=== PATIENT | female | born 1945 | race Caucasian/White ===

== ENCOUNTER 2018-01-13 10:59 | Emergency (ER) | payer MEDICARE, OTHER, SELFPAY ==
[2018-01-13 11:06] VITALS: BP 155/83; PULSE 68; RESP 16; TEMP 36.9; O2SAT 97; BMI 29.2
--- NOTE | 2018-01-13 11:08 | PC.NURSE ---
toke of marijuana use.
--- NOTE | 2018-01-13 11:17 | PC.NURSE ---
Pt states tetanus shot is up to date. Denies pain. States she has diabetic neuropathy and her sensation is normal for her. Toe nail was cut and is still partially intact. I removed bandage bleeding is stopped. Placed gauze to protect.
--- NOTE | 2018-01-13 11:28 | ED_ITS ---
HPI - Wound/Laceration General Chief Complaint: Wound/Laceration Stated Complaint: RT FOOT SLICED OPEN Time Seen by Provider: 01/13/18 11:12 Source: patient Mode of arrival: ambulatory Limitations: no limitations History of Present Illness HPI narrative: Patient is a 72-year-old female who presents with right toe laceration. She dropped a kitchen knife on her toe just prior to arrival. He has some mild neuropathy due to diabetes as is but denies numbness or tingling that is worse. Onset (ago): minute(s) Related Data Home Medications Medication Instructions Recorded Confirmed amlodipine [Norvasc] 5 mg PO QDAY #0 05/11/16 carbidopa-levodopa 2 tab PO Q DAY #0 05/11/16 fluticasone 1 spray INTRANASAL QDAY #0 05/11/16 loperamide 2 mg PO PRN PRN #0 05/11/16 loratadine [Claritin] 10 mg PO QDAY #0 05/11/16 ondansetron HCl 4 mg PO Q4HP PRN #0 05/11/16 Previous Rx's Medication Instructions Recorded sulfamethoxazole-trimethoprim 1 tab PO BID #14 tab 05/16/16 Allergies Allergy/AdvReac Type Severity Reaction Status Date / Time codeine [CODEINE] Allergy Unknown Unverified 06/20/17 12:59 Review of Systems Review of Systems All systems reviewed & are unremarkable except as noted in HPI and below Constitutional Denies fever(s) and Denies lethargy Eyes Denies blurry vision and Denies change in vision Cardiovascular Denies chest pain, Denies syncope and Denies dyspnea Respiratory Denies cough and Denies dyspnea Gastrointestinal Gastrointestinal: Denies nausea Musculoskeletal Reports as per HPI Integumentary/Breasts Reports as per HPI Neurologic Reports as per HPI and Denies syncope [facility] Medical History Diabetes (Acute) Social History Smoking Status: Former smoker Exam Initial Vital Signs Initial Vital Signs: Vital Signs Temperature 98.5 F 01/13/18 11:06 Pulse Rate 68 01/13/18 11:06 Respiratory Rate 16 01/13/18 11:06 Blood Pressure 155/83 H 01/13/18 11:06 Pulse Oximetry 97 01/13/18 11:06 GENERAL: Well-appearing, well-nourished and in no acute distress. CARDIOVASCULAR: peripheral pulses in tact, cap refill <2 sec RESPIRATORY: No respiratory distress, speaks in full sentences without difficulty EXTREMITIES: Normal range of motion, no clubbing or edema. Neurovascularly intact NEUROLOGICAL: Cranial nerves II through XII grossly intact. Normal gait and speech. SKIN: 2 cm laceration on his right 2nd toe involving part of the nail. Skin General: no rashes or lesions noted, No jaundice and No petechiae Feet w/LR Ind Top: 2 1. Flap-like laceration involving part of the toenail and toe bed Procedures Laceration Repair Laceration 1: Site: lower extremity Side (If applicable): right Size (cm): 2 Description: flap Depth: simple, single layer Local Anesthetic: lidocaine 1% Pre-repair: wound explored, irrigated extensively and deep structures intact Skin layer closed with: nylon Size (cm): 5-0 Number of sutures: 3 Technique: simple, interrupted Technique: other (Nail is partially removed. Remains intact at the cuticle) Nerve Block Nerve Block 1: Time out performed: Yes Local Anesthetic: lidocaine 1% Side: right Nerve Blocks: digital Procedure Successful: Yes Patient Tolerated Procedure: Well Complications: none Course Vital Signs - 8 hr 01/13/18 11:06 01/13/18 12:31 Temperature 98.5 F Pulse Rate 68 61 Respiratory Rate 16 18 Blood Pressure 155/83 H 138/75 Pulse Oximetry 97 98 Discharge Plan Departure Patient Disposition: Home Clinical Impression: Laceration of toe of right foot with damage to nail Discharge Date/Time: 01/13/18 12:32 Interventions: ED Discharge Assessment Last Done: 01/13/18 12:31 Instructions: DI for Laceration Repair -- Complex Activity Restrictions/Additional Instructions: 1. Have your suture removed in 5-7 days, you may go to walk-in clinic, return to the ER or call your primary care physician. 2. No soaking in water including dishes, bathtubs, Lakes, swimming pools etc 3. Signs of infection include, but not limited to, increased redness, increased swelling, increased pain, fever and purulent drainage, if the symptoms should arise, you may need an antibiotic and you should have a reevaluation either by your primary care provider or by the emergency department. Prescriptions: No Action loperamide 2 MG capsule 2 mg PO PRN PRNQty: 0 RF: 0 fluticasone 16 GM spray,suspension 1 spray Intranasal QDAY Qty: 0 RF: 0 loratadine [Claritin] 10 MG tablet 10 mg PO QDAY Qty: 0 RF: 0 carbidopa-levodopa 25 MG/100 MG tablet 2 tab PO Q DAY Qty: 0 RF: 0 amlodipine [Norvasc] 5 MG tablet 5 mg PO QDAY Qty: 0 RF: 0 ondansetron HCl 4 MG tablet 4 mg PO Q4HP PRNQty: 0 RF: 0 sulfamethoxazole-trimethoprim 800 MG/160 MG tablet 1 tab PO BID Qty: 14 RF: 0 Referrals: Akhil Nevarez MD [Primary Care Provider] -
[2018-01-13 12:31] VITALS: BP 138/75; PULSE 61; RESP 18; O2SAT 98
== END 2018-01-13 12:32 | disposition home or self-care (01) ==
PROVIDERS: Emergency Provider Emergency Medicine; PCP Family Medicine
DX: S91.214A Laceration without foreign body of right lesser toe(s) with damage to nail, initial encounter (principal); W26.0XXA Contact with knife, initial encounter
CPT/HCPCS: 12001; 12041; 64450; 99282; 99283

== ENCOUNTER → 2018-06-10 09:39 | Outpatient (CLI) | payer OTHER, SELFPAY | PROVIDERS: PCP Family Medicine; Visit Provider Family Medicine | DX: Z13.820 Encounter for screening for osteoporosis (principal); Z78.0 Asymptomatic menopausal state; E11.9 Type 2 diabetes mellitus without complications; R29.890 Loss of height; Z82.62 Family history of osteoporosis; Z87.891 Personal history of nicotine dependence | CPT/HCPCS: 77080 ==

== ENCOUNTER → 2018-12-19 09:07 | Outpatient (CLI) | payer OTHER, SELFPAY ==
--- NOTE | 2018-12-19 | DI.MG.S_ITS ---
BILATERAL DIGITAL SCREENING MAMMOGRAM 3D/2D WITH CAD: 12/19/2018 CLINICAL: Routine screening. Comparison is made to exams dated: 11/27/2016 mammogram, 10/26/2015 mammogram, and 06/30/2013 mammogram - [facility]. There are scattered fibroglandular elements in both breasts. Current study was also evaluated with a Computer Aided Detection (CAD) system. There is possible architectural distortion in the left breast middle depth central to the nipple seen on the craniocaudal view only. The patient reportedly has a history of an excisional biopsy of the left breast. No other suspicious masses, calcifications, or other findings are seen in either breast. IMPRESSION: INCOMPLETE: NEEDS ADDITIONAL IMAGING EVALUATION Possible architectural distortion in the left breast middle depth central to the nipple seen on the craniocaudal view only. This may represent postsurgical scarring as the patient reportedly has a history of an excisional biopsy of the left breast. Additional views (including with overlying scar marker) with possible ultrasound are recommended. This exam was interpreted at Station ID: [id number]. NOTE: For mammograms, a report in lay terms will be sent to the patient. Approximately 15% of breast malignancies will not be visualized mammographically. In the management of a palpable breast mass, a negative mammogram must not discourage biopsy of a clinically suspicious lesion. Electronically Signed By: Diego Satnos M.D. ecl/:12/19/2018 16:41:16 letter sent: Additional Imaging Needed ACR BI-RADS Category 0: Incomplete 3340F
== END ==
PROVIDERS: PCP Family Medicine; Visit Provider Family Medicine
DX: Z12.31 Encounter for screening mammogram for malignant neoplasm of breast (principal)
CPT/HCPCS: 77063; 77067

== ENCOUNTER → 2019-01-08 14:19 | Outpatient (CLI) | payer OTHER, SELFPAY ==
--- NOTE | 2019-01-08 | DI.MG.S_ITS ---
UNILATERAL LEFT DIGITAL DIAGNOSTIC MAMMOGRAM 3D/2D WITH ADDITIONAL VIEWS: 01/08/2019 CLINICAL: Additional evaluation requested from prior study. Comparison is made to exams dated: 12/19/2018 mammogram, 11/27/2016 mammogram, and 10/26/2015 mammogram - [facility]. There are scattered fibroglandular elements in left breast. The possible architectural distortion in the left breast middle depth central to the nipple seen on the craniocaudal view only is not reproduced and presumably represented superimposed breast tissue. This is consistent with summation artifact. No other significant masses or calcifications are seen in the breast. IMPRESSION: The previously described asymmetry disperses with additional views and is consistent with summation artifact. There is no mammographic evidence of malignancy. A 1 year screening mammogram is recommended. This exam was interpreted at Station ID: [id number]. NOTE: For mammograms, a report in lay terms will be sent to the patient. Approximately 15% of breast malignancies will not be visualized mammographically. In the management of a palpable breast mass, a negative mammogram must not discourage biopsy of a clinically suspicious lesion. Electronically Signed By: Parish Dickerson M.D. aty/:01/08/2019 14:56:20 letter sent: Normal Exam ACR BI-RADS Category 2: Benign Finding(s) 3342F
== END ==
PROVIDERS: PCP Family Medicine; Visit Provider Family Medicine
DX: R92.8 Other abnormal and inconclusive findings on diagnostic imaging of breast (principal)
CPT/HCPCS: 77065; G0279

== ENCOUNTER → 2019-08-22 10:58 | Outpatient (CLI) | payer OTHER, SELFPAY ==
[2019-08-22 23:20] LABS: COVID19 Sendout Not Detected (Not Detect)
== END ==
PROVIDERS: PCP Family Medicine; Visit Provider Physician Assistant
DX: Z01.812 Encounter for preprocedural laboratory examination (principal)
CPT/HCPCS: 87635

== ENCOUNTER 2019-08-25 12:46 | Day surgery (SDC) | payer OTHER, SELFPAY ==
[2019-08-25] VITALS (7 sets, daily range): BP systolic 126–154; BP diastolic 67–80; PULSE 57–71; RESP 11–19; TEMP 36.4–37; O2SAT 94–97; BMI 31.7
--- NOTE | 2019-08-25 | PATH_ITS ---
[facility] Accession Number: [id number] . 01 Material submitted: . rectum - RECTAL POLYP, 4 MM . 02 Diagnosis: Rectal Polyp, 4 mm, Biopsy: Colorectal mucosa with features of mucosal prolapse. Negative for dysplasia or malignancy. [facility] 08/26/2019 1045 Local . 02 Electronically signed: . Nicko Martin MD, PhD, Pathologist NPI- [id number] . 01 Gross description: . RECTAL POLYP, 4 MM: Received in formalin are 2 fragment(s) of pack, soft tissue measuring 0.1 x 0.1 x 0.1 cm to 0.2 x 0.2 x 0.2 cm submitted entirely in 1 cassette(s) /KHUSHI 08/25/20192111 Local . 02 Pathologist provided ICD-10: K62.1 . 02 CPT . 476569 Performed at: 01 [facility] [address] [facility], [place], [place] [id number] MD Desean Weaver MD Phone: [phone] Performed at: [facility] [address] [place], [place] [id number] MD Caitlyn Poole MD Phone: [phone]
--- NOTE | 2019-08-25 08:11 | PM.OP.ENDO ---
Operative Date/Time/Diagnoses Date of procedure: 08/25/19 Time of procedure: 13:45 Pre-op diagnosis: 1. History of colon polyps 2. Screening for colon cancer Post-op diagnosis: other (1. Left-sided diverticulosis, 2. Rectal polyp, 4 mm, removed with cold biopsy forceps) Procedure & Clinicians Study performed: Colonoscopy Indications: 1. History of colon polyps 2. Screening for colon cancer Surgeon: Svetlana Arroyo Procedure Notes Procedure in detail: ENDOSCOPIST: Svetlana Arroyo MD Sedation RN: Angely Urbina RN Sedation start time: 13:48 Sedation end time: 14:17 PROCEDURE: Colonoscopy with biopsy INDICATIONS: 1. History of colon polyps 2. Screening for colon cancer MEDICATION: Levsin 0.125 mg sublingual, incremental doses of Versed and fentanyl until appropriate level sedation achieved. ASA CLASS: 2 CECAL WITHDRAWAL TIME: 6 minutes COMPLICATIONS: None. EXTENT OF PROCEDURE: Cecum. QUALITY OF PREP: Good with portions of liquid stool. PROCEDURE: Prior to insertion of the colonoscope, a digital rectal examination was accomplished with circumferential palpation of the distal rectal mucosa without significant findings being noted. The high-definition pediatric colonoscope was passed into the rectum in the usual fashion and advanced over to the cecum without difficulty. The ileocecal valve, appendiceal stoma, and medial wall all could be inspected and no abnormalities were seen. ASCENDING COLON: As the colonoscope was withdrawn, care was taken to expose and inspect the haustral folds and no abnormalities were seen. HEPATIC FLEXURE: Normal, no polyps, diverticula or other abnormalities. TRANSVERSE COLON: Normal, no polyps, diverticula or other abnormalities. DESCENDING COLON: Moderate diverticulosis, otherwise, normal, no polyps or other abnormalities. SIGMOID COLON: Moderate diverticulosis, otherwise, normal, no polyps or other abnormalities. RECTUM: Normal. J maneuver was produced. There was no significant perianal disease. A 4 mm polyp was noted and removed with cold biopsy forceps. The J maneuver was broken. The remainder of the rectum was inspected and there was no external hemorrhoid disease. The scope was withdrawn. IMPRESSION: 1. Rectal polyp x1, 4 mm, removed with cold biopsy forceps 2. Left-sided diverticulosis, moderate PLAN: 1. Follow-up in clinic status post pathology results. The possibility of a missed lesion including a malignancy has been discussed with the patient previously. Potential alarm symptoms have been discussed and should be reported immediately.
--- NOTE | 2019-08-25 08:12 | P.HP_ITS ---
History of Present Illness History of Present Illness Date Patient Seen: 08/25/19 Chief complaint: [id number] Narrative: 73 year old female comes in today for consideration of a screening colonoscopy. She has had 2 previous lifetime colonoscopies and history of polyps. Results unavailable at time of dictation. Last colonoscopy over 10 years ago. There have been no lower GI symptoms suggesting disease such as change in bowel habits, bleeding, abdominal pain or anemia. There's been no fa manav history of colon cancer or colon polyps. Overall health issues have been stable, including no major cardiac events for at least 6 weeks. PCP: Dr. 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 Patient History Medical History (Updated 01/28/18 @ 00:00 by ) Diabetes (Acute) Family & Social History Tobacco & Substance use: Smoking Status Former smoker alcohol intake frequency 0-2 drinks per day Substance Use Type marijuana Meds Home Medications and Allergies Home Medications Medication Instructions Recorded Confirmed Type amlodipine [Norvasc] 5 mg PO QDAY #0 05/11/16 08/25/19 History loperamide 2 mg PO PRN PRN #0 05/11/16 08/25/19 History lisinopril-hydrochlorothiazide 1 tab PO DAILY 08/25/19 08/25/19 History metoprolol tartrate 100 mg PO BID 08/25/19 08/25/19 History simvastatin 40 mg 08/25/19 History Allergies Allergy/AdvReac Type Severity Reaction Status Date / Time codeine [CODEINE] Allergy Unknown Rash Unverified 08/25/19 13:23 Review of Systems Review of Systems ROS: Yes All systems reviewed with the patient and are negative except as otherwise documented Exam Narrative Exam Narrative: GENERAL: Alert and oriented, appearing stated age and in no acute distress. HEENT: Head normocephalic/atraumatic. Pupils equal, round, and reactive to light and accomodation. Extraocular muscles intact. Tympanic membranes clear. Nasal mucosa moist, septum midline. Oral mucosa moist, no lesions. Neck soft and supple, no lymphadenopathy. LUNGS: Clear to ausculation bilaterally, no wheezes, rhonchi or rales. CV: Normal S1 and S2 with regular rate and rhythm, no audible murmurs, rubs or gallops. ABDOMEN: Soft, non-tender, non-distended, no organomegaly. Positive bowel sounds. EXTREMITIES: No clubbing, cyanosis, or edema. NEURO: Cranial nerves II through XII grossly intact, no focal deficits. PSYCH: Alert and oriented x 3. SKIN: No concerning lesions. Assessment & Plan Assessment & Plan narrative: 1. History of colon polyps 2. Screening for colon cancer Plan for colonoscopy. The nature and character of the procedure as well as anticipated results were discussed. The possibility of not completing the procedure was also discussed. Possible complications including aspiration pneumonia, bleeding, perforation and reaction to medications either for sedation or preparation and missed lesions were discussed. Questions were answered and proceeding to the colonoscopy was elected. Informed consent signed. I sincerely appreciate the referral allowing me to participate in this patient's care. Please contact me with any questions or concerns.
[2019-08-25] MEDS: HYOSCYAMINE 0.125 MG TABLET PO (13:27)
[2019-08-25] MEDS: LACTATED RINGERS 1,000 ML 42 ML IV (13:42)
[2019-08-25] MEDS: MIDAZOLAM 5 MG/5 ML VIAL IV (14:25)
[2019-08-25] MEDS: fentaNYL 250 MCG/5 ML INJ IV (14:25)
--- NOTE | 2019-08-25 14:28 | SUR.PHASEI ---
Dr. Hill spoke with the patient, then she went back to sleep. Denied pain/nausea on admit to PACU
--- NOTE | 2019-08-25 14:37 | SUR.PHASEI ---
HOB elevated, juice given, VSS
--- NOTE | 2019-08-25 15:04 | SUR.PHASEII ---
Pt A&O, anxious to go home. We are unable to reach her ride via phone, pt has texted her. Instructions reviewed, tolerating PO well. Has her belongings.
== END 2019-08-25 15:40 | disposition home or self-care (01) ==
PROVIDERS: PCP Family Medicine; Referring Provider Student in an Organized Health Care Education/Training Program; Visit Provider Student in an Organized Health Care Education/Training Program
PROC: 0DJD8ZZ Inspection of Lower Intestinal Tract, Via Natural or Artificial Opening Endoscopic (ICD-10-PCS; CPT 45378; principal; 2019-08-25 13:45)
DX: Z12.11 Encounter for screening for malignant neoplasm of colon (principal); Z86.010 Personal history of colon polyps; E11.9 Type 2 diabetes mellitus without complications; I10 Essential (primary) hypertension; E78.5 Hyperlipidemia, unspecified; K57.30 Diverticulosis of large intestine without perforation or abscess without bleeding; K62.1 Rectal polyp
CPT/HCPCS: 45380; J2250; J3010

== ENCOUNTER → 2020-01-15 10:45 | Outpatient (CLI) | payer OTHER, SELFPAY ==
--- NOTE | 2020-01-15 | DI.MG.S_ITS ---
BILATERAL DIGITAL SCREENING MAMMOGRAM 3D/2D WITH CAD: 01/15/2020 CLINICAL: Routine screening. Comparison is made to exams dated: 12/19/2018 mammogram, 11/27/2016 mammogram, 10/26/2015 mammogram, 01/08/2019 mammogram, and 06/30/2013 mammogram - [facility]. There are scattered fibroglandular elements in both breasts. Current study was also evaluated with a Computer Aided Detection (CAD) system. No significant masses, calcifications, or other findings are seen in either breast. There has been no significant interval change. IMPRESSION: NEGATIVE There is no mammographic evidence of malignancy. A 1 year screening mammogram is recommended. This exam was interpreted at Station ID: [id number]. NOTE: For mammograms, a report in lay terms will be sent to the patient. Approximately 15% of breast malignancies will not be visualized mammographically. In the management of a palpable breast mass, a negative mammogram must not discourage biopsy of a clinically suspicious lesion. Electronically Signed By: Jeovanny meyer/tarun:01/15/2020 14:04:45 letter sent: Normal Exam ACR BI-RADS Category 1: Negative 3341F
== END ==
PROVIDERS: PCP Family Medicine; Referring Provider Family Medicine; Visit Provider Family Medicine
DX: Z12.31 Encounter for screening mammogram for malignant neoplasm of breast (principal)
CPT/HCPCS: 77063; 77067

== ENCOUNTER → 2020-04-21 10:33 | Outpatient (CLI) | payer OTHER, SELFPAY ==
--- NOTE | 2020-04-21 | DI.US.S_ITS ---
PROCEDURE: US RENAL COMPLETE INDICATIONS: CHRONIC KIDNEY DISEASE - STAGE 4 TECHNIQUE: Real-time scanning was performed of the kidneys and bladder, with image documentation. COMPARISON: None. FINDINGS: Kidneys: Kidneys are normal in size. Right kidney measures 12.1 cm long; left kidney measures 10.9 cm long. Right renal cortical thickness is 1.5 cm; left renal cortical thickness is 2.6 cm. The kidneys demonstrate a generalized hyperechoic appearance. No hydronephrosis or nephrolithiasis. No suspicious solid mass lesions. Several simple appearing cysts are seen, with the largest on the right measuring 2.6 cm and the largest on the left seen inferiorly measuring 2.4 cm. Bladder: Pre-void bladder volume is 168 mL. Post-void residual is 0 mL. Pre-void images demonstrate no intraluminal masses or stones. On pre-void images, neither of the ureteral jets are noted with color Doppler interrogation. (Of note, ureteral jets may not be detectable in up to 25% of cases due to insufficient differences in specific gravity between ureteral and bladder urine). Miscellaneous: No free pelvic fluid. IMPRESSION: No hydronephrosis is seen. No focal suspicious renal lesions can be seen. The kidneys demonstrate a generalized increased echogenic appearance, which is consistent with the given history of chronic kidney disease. Several simple appearing cysts are incidentally noted on both sides. Dictated by: León Baires M.D. on 04/21/2020 at 11:55 Approved by: León Baires M.D. on 04/21/2020 at 11:56
== END ==
PROVIDERS: PCP Family Medicine; Referring Provider Nurse Practitioner Family; Visit Provider Nurse Practitioner Family
DX: N18.4 Chronic kidney disease, stage 4 (severe) (principal); N28.1 Cyst of kidney, acquired
CPT/HCPCS: 76770

== ENCOUNTER → 2021-04-20 16:49 | Outpatient (CLI) | payer OTHER, SELFPAY ==
--- NOTE | 2021-04-20 | DI.MG.S_ITS ---
BILATERAL DIGITAL SCREENING MAMMOGRAM 3D/2D WITH CAD: 04/20/2021 CLINICAL: Routine screening. Comparison is made to exams dated: 01/15/2020 mammogram, 01/08/2019 mammogram, 12/19/2018 mammogram, and 11/27/2016 mammogram - [facility]. There are scattered fibroglandular elements in both breasts. Current study was also evaluated with a Computer Aided Detection (CAD) system. There is a new asymmetry in the right breast at 1 o'clock middle depth. There is architectural distortion associated with the asymmetry. No other significant masses, calcifications, or other findings are seen in either breast. IMPRESSION: INCOMPLETE: NEEDS ADDITIONAL IMAGING EVALUATION The new asymmetry in the right breast is indeterminate. A diagnostic mammogram and ultrasound is recommended. This exam was interpreted at Station ID: [id number]. NOTE: For mammograms, a report in lay terms will be sent to the patient. Approximately 15% of breast malignancies will not be visualized mammographically. In the management of a palpable breast mass, a negative mammogram must not discourage biopsy of a clinically suspicious lesion. Electronically Signed By: Roosevelt Morocho M.D., jr/tarun:04/21/2021 08:45:33 letter sent: Additional Imaging Needed ACR BI-RADS Category 0: Incomplete 3340F
== END ==
PROVIDERS: PCP Family Medicine; Referring Provider Family Medicine; Visit Provider Family Medicine
DX: Z12.31 Encounter for screening mammogram for malignant neoplasm of breast (principal)
CPT/HCPCS: 77063; 77067

== ENCOUNTER → 2021-05-27 09:21 | Outpatient (CLI) | payer OTHER, SELFPAY ==
--- NOTE | 2021-05-27 | DI.US.S_ITS ---
ULTRASOUND OF RIGHT BREAST: 05/27/2021 CLINICAL: Patient returns today to evaluate a focal asymmetry in the right breast. Comparison is made to exams dated: 05/27/2021 mammogram, 04/20/2021 mammogram, 01/15/2020 mammogram, 12/19/2018 mammogram, 11/27/2016 mammogram, and 10/26/2015 mammogram - [facility]. Color flow and continuous wave Doppler ultrasound of the right breast were performed. There is a 0.7 cm x 0.8 cm x 0.7 cm irregular mass with a spiculated margin in the right breast central to the nipple middle depth 4.3 cm from the nipple. This irregular mass displays posterior acoustic shadowing. No enlarged lymph nodes are identified. IMPRESSION: SUSPICIOUS OF MALIGNANCY The 0.7 cm x 0.8 cm x 0.7 cm irregular mass in the right breast is at a high suspicion for malignancy. An ultrasound guided biopsy is recommended. This exam was interpreted at Station ID: [id number]. Electronically Signed By: Zachariah Jack acr/:05/27/2021 11:24:25 letter sent: Biopsy Required Ultrasound BI-RADS: 4c High suspicion of malignancy
--- NOTE | 2021-05-27 | DI.MG.S_ITS ---
UNILATERAL RIGHT DIGITAL DIAGNOSTIC MAMMOGRAM 3D/2D WITH ADDITIONAL VIEWS: 05/27/2021 CLINICAL: Additional evaluation requested from prior study. Comparison is made to exams dated: 04/20/2021 mammogram, 01/15/2020 mammogram, and 12/19/2018 mammogram - [facility]. There are scattered fibroglandular elements in right breast. There is irregular architectural distortion with a spiculated margin in the right breast central to the nipple middle depth 4.3 cm from the nipple. No other significant masses or calcifications are seen in the breast. IMPRESSION: INCOMPLETE: NEEDS ADDITIONAL IMAGING EVALUATION The irregular architectural distortion in the right breast is indeterminate. An ultrasound is recommended. US will be performed and dictated separately. This exam was interpreted at Station ID: [id number]. NOTE: For mammograms, a report in lay terms will be sent to the patient. Approximately 15% of breast malignancies will not be visualized mammographically. In the management of a palpable breast mass, a negative mammogram must not discourage biopsy of a clinically suspicious lesion. Electronically Signed By: Zachariah Jack acr/:05/27/2021 11:17:10 ACR BI-RADS Category 0: Incomplete 3340F
== END ==
PROVIDERS: PCP Family Medicine; Referring Provider Family Medicine; Visit Provider Family Medicine
DX: R92.8 Other abnormal and inconclusive findings on diagnostic imaging of breast (principal); N63.15 Unspecified lump in the right breast, overlapping quadrants
CPT/HCPCS: 76642; 77065; G0279

== ENCOUNTER → 2021-07-08 10:13 | Outpatient (CLI) | payer OTHER, SELFPAY ==
--- NOTE | 2021-07-08 | PATH_ITS ---
[facility] Accession Number: [id number] . 01 Material submitted: . breast - RIGHT BREAST MASS 12:00 . 02 Diagnosis: Right Breast Mass at 12 o'clock, Needle Core Biopsy: Invasive lobular carcinoma. Please see Cancer Case Summary. . CANCER CASE SUMMARY . Specimen Procedure: Needle biopsy. Specimen laterality: Right. . Tumor Tumor site: 12 o'clock, middle depth, 4.3 cm from nipple by mammography report 05/27/21. Histologic type: Invasive lobular carcinoma by immunohistochemistry studies. Histologic grade Glandular differentiation: Score 3/3. Nuclear pleomorphism: Score 1/3. Mitotic rate: Score 1/3. Overall grade: Grade 1 (score 5/9); low grade. Tumor size: Four small foci (1 mm, 2 mm, 2 mm, and 4 mm). . Carcinoma in situ: Atypical lobular hyperplasia/LCIS present as one minute focus (less than 1 mm). . Lymphovascular invasion: Not identified. . Microcalcifications: Not identified. . Additional findings: Patchy stromal fibrosis. . Special studies: CAP BREAST BIOMARKER REPORTING TEMPLATE: . Estrogen Receptor (ER) Status: Positive, greater than 95%. Average intensity of staining: Strong. Primary antibody: SP1 Progesterone Receptor (PgR) Status: Positive, approximately 50% of tumor nuclei. Average intensity of staining: Moderate. Primary antibody: 1E2 HER2 (by immunohistochemistry): Negative at 1+. Primary antibody: 4B5 . . Cold Ischemia and Fixation Times: Meets requirements in the latest version of the ASCO/CAP guidelines. Testing performed on Block Number: . TECHNICAL NOTE: The scoring criteria for breast biomarkers by immunohistochemistry is based on the current ASCO/CAP guidelines (Tereza et al, Arch Pathol Lab Med 2010: 134(6): 907-922 / Jeovanny Parra, Arch Pathol Lab Med 2014: 138(2):241-256). Deparaffinized sections of formalin fixed tissue (along with appropriate positive controls) are incubated with the above antibody(s). Using the automated [employer] stainer, tissue is incubated with the designated antibody* which is then localized by a non-biotin, dual polymer detection system. The external controls are reviewed for appropriate reactivity and found to be adequate. Results on the target cell population are indicated above. These tests have not been validated on decalcified tissue. V 07/14/2021 1600 Local . 02 Comment: As part of routine air quality instrument specialist, this case was also reviewed by Dr. Poole, who agrees with the interpretation. . 02 Electronically signed: . Megan Mcpherson MD, Pathologist NPI- [id number] . 01 Gross description: . The specimen is received in formalin, labeled right breast 12 o'clock, and consists of an aggregate of fibroadipose tissue fragments measuring 2.0 x 1.5 x 0.4 cm in aggregate. The specimen is filtered and entirely submitted in one cassette. Time out of body and time in fixative are not given. The specimen will be in formalin for no longer than 72 hours. ([id number]) /R 07/09/2021 1726 Local . 02 Microscopic: . An immunohistochemistry panel is performed to further evaluate the cells of interest. The control stains show appropriate reactivity. . RESULTS: Block A1 P63: Absent around cells of interest. SMMS: Absent around cells of interest. . The absence of p63 and myosin at the foci of interest supports an interpretation of invasive carcinoma. . MATTHEW: Positive. E-cadherin: Negative. . Immunohistologic features are consistent with lobular differentiation. . . * This test was developed and its performance characteristics determined by [facility]. It has not been cleared or approved by the U.S. Food and Drug Administration. The FDA has determined that such clearance or approval is not necessary. This test is used for clinical purposes. It should not be regarded as investigational or for research . 02 Pathologist provided ICD-10: C50.911, R92.8 . 02 CPT . 293710, 021269, 821122, 997535, G51279, I31576 Specimen Comment: A courtesy copy of this report has been sent to [facility] Performed at: 01 [facility] [address] [facility], [place], [place] [id number] MD Desean Weaver MD Phone: [phone] Performed at: 02 [facility] [address] [place], [place] [id number] MD Caitlyn Poole MD Phone: [phone]
--- NOTE | 2021-07-08 | DI.MG.S_ITS ---
UNILATERAL RIGHT DIGITAL DIAGNOSTIC MAMMOGRAM 3D/2D: 07/08/2021 CLINICAL: Post clip right. Comparison is made to exams dated: 05/27/2021 ultrasound, 05/27/2021 mammogram, 04/20/2021 mammogram, 01/15/2020 mammogram, and 01/08/2019 mammogram - [facility]. There are scattered fibroglandular elements in right breast. There is a marker clip in the appropriate position in the right breast at 12 o'clock anterior depth at the biopsy site. IMPRESSION: POST PROCEDURE MAMMOGRAM FOR MARKER PLACEMENT There was a successful marker clip placement in the right breast anterior depth. This exam was interpreted at Station ID: [id number]. NOTE: For mammograms, a report in lay terms will be sent to the patient. Approximately 15% of breast malignancies will not be visualized mammographically. In the management of a palpable breast mass, a negative mammogram must not discourage biopsy of a clinically suspicious lesion. Electronically Signed By: Jeovanny Chavarria M.D. slc/:07/08/2021 12:03:09 ACR BI-RADS Category Post-procedure mammogram for marker placement
--- NOTE | 2021-07-08 | DI.US.S_ITS ---
ULTRASOUND GUIDED BIOPSY RIGHT BREAST USING VACUUM DEVICE WITH MARKING DEVICE INSERTED AND POST DIGITAL MAMMOGRAPHIC IMAGIN07/08/2021 CLINICAL: Right breast mass. PATIENT CONSENT: Risks (minor bleeding, infection, vasovagal reaction and repeat procedure), benefits and alternatives were explained to the patient and written informed consent was obtained. Correlation is made to exams dated: 05/27/2021 ultrasound, 05/27/2021 mammogram, 04/20/2021 mammogram, 01/15/2020 mammogram, 12/19/2018 mammogram, and 11/27/2016 mammogram - [facility]. An ultrasound guided biopsy using real-time ultrasound was performed for the palpable 1.4 cm x 1.3 cm indistinct irregular shaped mass located in the right breast at 12 o'clock middle depth 4 cm from the nipple. This was described on the previous ultrasound report. The skin was prepped in the usual manner. Local anesthetic was administered to the access site. A skin silverio was made in the breast. The abnormality was approached from the lateral aspect. A 10 gauge biopsy needle was placed adjacent to the abnormality under ultrasound guidance. Once the needle was documented to be in the correct location, six cores were obtained using the Mammotome biopsy system. A celero clip was inserted into the biopsy cavity. A skin adhesive and a sterile dressing were applied to the access site. Post procedure digital mammographic imaging demonstrates the location device at the targeted area. The specimens were sent to the laboratory for pathological analysis. IMPRESSION: ULTRASOUND GUIDED BIOPSY MALIGNANT Ultrasound guided biopsy of the 1.4 cm x 1.3 cm mass in the right breast at 12 o'clock middle depth 4 cm from the nipple was successful with no apparent post procedure complications. Pathology indicates malignant invasive lobular carcinoma ([place]). Pathology results are concordant with imaging findings. A surgical/oncologic consultation is recommended. This exam was interpreted at Station ID: [id number]. Jeovanny meyer jr/tarun:07/18/2021 15:46:25
== END ==
PROVIDERS: PCP Family Medicine; Referring Provider Family Medicine; Visit Provider Family Medicine
DX: N63.15 Unspecified lump in the right breast, overlapping quadrants (principal)
CPT/HCPCS: 19083; 77065

== ENCOUNTER → 2021-08-16 09:39 | Outpatient (CLI) | payer OTHER, SELFPAY ==
[2021-08-16 15:10] LABS: COVID19 -Nasal RAPID POSITIVE (Negative)
== END ==
PROVIDERS: PCP Family Medicine; Visit Provider Surgery
DX: U07.1 COVID-19 (principal)
CPT/HCPCS: 87635; C9803

== ENCOUNTER → 2021-08-17 13:44 | Outpatient (CLI) | payer OTHER, SELFPAY ==
--- NOTE | 2021-08-17 13:45 | DI.NM.S_ITS ---
PROCEDURE: NM SENTINEL NODE INJECT ONLY RADIOPHARMACEUTICAL: 0.5-1.0 mCi Millipore filtered Tc-99m sulfur colloid. INDICATIONS: mastectomy with SNLB COMPARISON: [facility], , US BREAST RT LIMITED, 05/27/2021, 10:39. [facility], , MM DIAGNOSTIC MAMMO UNILAT RT2D, 07/08/2021, 11:21. [facility], , US BX BREAST PERC W VAC DEVICE, 07/08/2021, 10:33. PROCEDURE: The area around the nipple was prepped and draped in a sterile fashion. Tc-99m sulfur colloid was injected intra-dermally around the outer edge of the areola in the right breast. No image was obtained. IMPRESSION: Administration of radiotracer into the right breast periareolar region for intra-operative sentinel lymph node localization. Dictated by: Keyon Lee M.D. on 08/17/2021 at 18:33 Approved by: Keyon Lee M.D. on 08/17/2021 at 18:37
== END ==
PROVIDERS: PCP Family Medicine; Referring Provider Surgery; Visit Provider Surgery
DX: C50.911 Malignant neoplasm of unspecified site of right female breast (principal)
CPT/HCPCS: 38792; A9541

== ENCOUNTER 2021-08-17 13:46 | Day surgery (SDC) | payer OTHER, SELFPAY ==
[2021-08-11 08:31] VITALS: BMI 32.9
--- NOTE | 2021-08-17 | PATH_ITS ---
[facility] Accession Number: [id number] . 01 Material submitted: . PART A: breast - RIGHT BREAST PART B: lymph node - SENTINEL LYMPH NODES . Clinical history: . A: RIGHT BREAST SHORT SUPERIOR LONG LATERAL B: SENTINEL LYMPH NODES, COUNTIN, 243 . 01 Diagnosis: A. Right Breast, Excision: Invasive lobular carcinoma. Please see Cancer Case Summary below. . B. [place] Lymph Node, Excision: Six sentinel lymph nodes negative for metastatic carcinoma. Please see Cancer Case Summary below. . . CASE SUMMARY: Invasive carcinoma of the breast. Procedure: Excision: Specimen laterality: Right. Tumor site: 12 o'clock. Histologic type: Invasive lobular carcinoma. Histologic grade (Sania histologic score) Glandular/tubular differentiation: Score 3. Nuclear pleomorphism: Score 2. Mitotic rate: Score 1. Overall grade: Grade 2. Tumor size: 1.7 mm in greatest dimension. Tumor focality: Single focus of invasive carcinoma. Ductal carcinoma in situ: Not identified. Lobular carcinoma in situ: Present. Tumor extent: Skin and nipple are uninvolved. Lymphovascular invasion: Not identified. Dermal lymphovascular invasion: Not identified. Microcalcifications: Not identified. Treatment effect in the breast: No known presurgical therapy. Treatment effect in the lymph nodes: Not applicable. Margin status for invasive carcinoma: All margins negative for invasive carcinoma. Distance from invasive carcinoma to closest margin: All margins are greater than 0.5 cm. . Regional lymph node status: All regional lymph nodes negative for tumor. Total number of lymph nodes examined: Six. Number of sentinel nodes examined: Six. Distant metastasis: Not applicable. . Pathologic stage classification (AJCC 8th Edition): PT category: pT1c. PN category; pN0. PM category: Not applicable. . Additional findings: Biopsy site changes present. . Breast biomarker testing performed on prior biopsy ([id number]): Estrogen receptor status: Positive, strong, greater than 95% of cells. Progesterone receptor status: Positive, moderate approximately 50% of cells. HER2 by immunohistochemistry: Negative (Score 1+). [facility] 08/22/2021 1733 Local . 01 Electronically signed: . Caitlyn Poole MD, Pathologist NPI- [id number] . 01 Gross description: . A. Received in formalin labeled with the patient's name and right breast consists of a 442-gram oriented lumpectomy specimen with a short suture designating superior and a long suture designating lateral per the requisition. The external surface is yellow, lobulated and heavily disrupted with metal localization wires identified. The reapproximated specimen measures 12.1 cm AP, 13.9 cm ML, and 5.8 cm SI. Also included is an ellipse of pack wrinkled skin with nipple areolar complex measuring 9.0 x 3.6 cm. The nipple is erythematous and smooth. The reapproximated specimen is inked as follows: Anterior yellow, deep black, medial blue, inferior red, lateral green, and superior orange. The specimen is serially sectioned from medial to lateral into 20 slices (0.4 cm each) to reveal an ill-defined, firm, hemorrhagic lesion within slices 10-12 measuring approximately 1.5 cm AP, 1.7 cm SI, 1.4 cm ML. The lesion measures greater than 0.5 cm from all margins. A cylinder biopsy clip is found within slice 12. The remaining unremarkable tissue is yellow to pink fibroadipose tissue with thin fibrous tissue occupying approximately 20% of the cut surface. No additional lesions are identified. . Lead Painter sections are submitted as follows: A1: Nipple perpendicular. A2: Rep 1; medial margin; perpendicular. A3: Rep 3, posterior and superior margins. A4: Rep 5; deep margin. A5: Rep 7; superior margin. A6-A7: Rep 9; adjacent to lesion; superior and inferior margins. A8-A10: Composite rep 10; with lesion; superior and inferior margins. A11-A13: Composite rep 11; with lesion; superior and inferior margins. A14: Rep 11, anterior and posterior margins. A15-A17: Rep 12; with lesion and biopsy site; superior, inferior, anterior and posterior margins. A18-A21: Rep 13; superior, inferior, and posterior margins. A22: Rep 15; inferior margin. A23: Rep 17; lateral margin. A24: Rep 18; lateral margin. A25: Rep 20; lateral margin; perpendicular. . Time in formalin not provided. Total fixation time cannot be calculated. . B. Received in formalin labeled with the patient's name and sentinel lymph nodes consists of a fragment of yellow lobulated adipose tissue measuring 4.3 x 3.6 x 1.2 cm. Palpation reveals six pink-pack lymph node candidates ranging from 0.1 to 2.1 cm in greatest dimension. . The specimen is submitted as follows: B1: Two intact lymph node candidates. B2: Three intact lymph node candidates. B3: Single intact irregularly-shaped lymph node candidate. . Time in formalin not provided. Total fixation time cannot be calculated. ([id number]) /MRV 08/22/2021 1733 Local . 01 Microscopic: . Immunohistochemical stains were performed on blocks A21, B1, B2 and B3 in order to evaluate cells of interest, and are all negative for cytokeratin MATTHEW by immunohistochemistry. The control stain showed appropriate reactivity. . . * This test was developed and its performance characteristics determined by [employer] [facility]. It has not been cleared or approved by the U.S. Food and Drug Administration. The FDA has determined that such clearance or approval is not necessary. This test is used for clinical purposes. It should not be regarded as investigational or for research. . 01 Pathologist provided ICD-10: C50.911 . 01 CPT . 376604, 052366, X98190 Performed at: 01 [facility] [address] [place] [id number] MD Desean Weaver MD Phone: [phone]
[2021-08-17 14:46] VITALS: BP 154/67; PULSE 54; RESP 15; TEMP 37.7; O2SAT 98; BMI 32.9
[2021-08-17] MEDS: LACTATED RINGERS 1,000 ML 100 ML IV (15:11)
--- NOTE | 2021-08-17 15:58 | PM.PREOP ---
Pre-operative Note Interval Note History & Physical reviewed/Exam performed by Physician: Yes Changes to H&P: Yes H&P completed within 30 days and has changed as indicated here:: Patient has decided to undergo mastectomy with sentinel lymph node biopsy instead of lumpectomy. Operative risks again discussed including bleeding, infection, damage to surrounding structures, reoccurence, lymphedema, nerve injury. Questions have been answered.
[2021-08-17] MEDS: CEFAZOLIN 2 GM/20 ML SYRINGE IV (17:00)
--- NOTE | 2021-08-17 17:16 | SUR.OPER ---
Supine on padded OR bed, head on pillow, arms secured on padded arm boards at <90 degrees abduction, legs uncrossed, safety belt at thigh, tape over blanket over lower legs. Directed and approved by surgeon
--- NOTE | 2021-08-17 17:24 | PM.PROC.1 ---
Procedures Date/Time Date of procedure: 08/17/21 Time of procedure: 16:54 Nerve Block Time out performed: Yes Local anesthetic used: other (15mL 0.5% Ropivacaine and 5mL 2% lido with epi) Location of anesthetic used: Pectoral Amount of anesthesia used (mL): 30 Procedure successful: Yes Patient tolerated procedure: well Complications: none Additional comments: PEC II nerve block for post operative pain management. Risks and benefits discussed, including bleeding, infection, intravascular injection, nerve damage, block failure. General anesthesia, standard ASA monitors, Pt supine. Chloroprep site preparation, sterile technique. Pectoralis major, pectoralis minor, and serratus anterior muscles identified at ribs 3-4, mid-clavicular line with US guidance. 22g x 50mm Pajunk advanced with in-plane US guidance to facial plane between serratus and pectoralis. Negative aspiration. 10mL LA injected with intermittent negative aspiration. Needle withdrawn to facial plane between pec major and minor. Negative aspiration. 10mL injected with intermittent aspiration. Good LA spread noted on US. Pt tolerated procedure well. Vital signs stable.
[2021-08-17] MEDS: BUPIVACAINE 0.25% (PF) VIAL 30 ML INJ (18:00)
[2021-08-17] MEDS: METHYLENE BLUE 50 MG/10 ML VIAL INJ (18:12)
[2021-08-17 18:40] VITALS: BP 110/70; PULSE 77; RESP 16; TEMP 36.4; O2SAT 97
[2021-08-17 18:45] VITALS: BP 150/82; PULSE 68; RESP 18; O2SAT 97
--- NOTE | 2021-08-17 18:49 | P.OP_ITS ---
Operative Date/Time/Diagnoses Date of procedure: 08/17/21 Time of procedure: 18:50 Pre-op diagnosis: Right breast cancer Post-op diagnosis: same Procedure & Clinicians Procedure: Right mastectomy and sentinel lymph node biopsy Same procedure as scheduled: Yes Indications: Right breast cancer Surgeon: Abhinav Rouse Anesthesia Type: General Operative Notes Findings: minimal subcutaneous tissue the skin from the breast Specimen(s): other ([place] lymph nodes, right breast) Estimated Blood Loss (mL): 100 Procedure in detail: Patient was brought to the operating room placed supine on the table. Bilateral lower extremity compression devices were applied. She received 2 g of Ancef prior to skin incision. She was intubated with an endotracheal tube. She was then prepped and draped in sterile fashion. Time-out was performed. I injected 1 mL of methylene blue diluted with 4 ml saline into the periareolar tissue and massaged it into the breast. An elliptical incision around the nipple areola complex was made with the knife. The subcutaneous tissue was divided with electrocautery. Skin flaps were raised to separate the breast tissue from the skin along the subdermal plexus. The skin was very the in and there was very little subcutaneous tissue. The dissection was extended superior to the clavicle, medial to the sternum, inferior the the inframamary fold and lateral to the anterior border of the latisimus dorsi. Next the breast tissue was from the underlying pectoralis fascia. The breast was passed off the field marked short stitch superior long stitch lateral. The axillary tissue was carefully dissected towards the area of maximal radioactivity. Two sentinel lymph node were identified. The ten second counts were 149 and 250. No methylene blue was observed within the lymph nodes. The lymphatics were clipped with heomolips and transected sharply. I returned the gamma probe to the field there were no pathologically enlarged nodes or significant background activity. A 19 [place] drain was placed into the cavity and secured. The wound was copiously irrigated and homeostasis was ensured. The mastectomy was closed with 3 0 Vicryl for the subcutaneous tissue and the skin was closed with 4 0 Monocryl followed by the application of Dermabond. Patient tolerated procedure well she emerged from anesthesia was extubated and transferred to recovery room in stable condition. Complications: none Post-operative Condition: stable Disposition: same day surgery
[2021-08-17 18:50] VITALS: BP 148/60; PULSE 70; RESP 16; O2SAT 97
[2021-08-17 19:05] VITALS: BP 152/80; PULSE 67; RESP 17; TEMP 36.8; O2SAT 95
[2021-08-17 19:20] VITALS: BP 172/93; PULSE 65; RESP 16; TEMP 37.1; O2SAT 95
[2021-08-17] MEDS: ACETAMINOPHEN 325 MG TABLET 975 MG PO (19:31)
[2021-08-17] MEDS: OXYCODONE IR 5 MG TABLET PO (19:32)
== END 2021-08-17 20:00 | disposition home or self-care (01) ==
PROVIDERS: PCP Family Medicine; Referring Provider Surgery; Visit Provider Surgery
PROC: 0HTT0ZZ Resection of Right Breast, Open Approach (ICD-10-PCS; CPT 19303; principal; 2021-08-17 16:00)
DX: C50.911 Malignant neoplasm of unspecified site of right female breast (principal); Z17.0 Estrogen receptor positive status [ER+]
CPT/HCPCS: 19303; 38500; 38792; 82962; A9541; J0690; J1100; J2405; J2704; J3010; Q9968

== ENCOUNTER 2021-11-02 12:32 | Inpatient (IN) | payer OTHER, SELFPAY ==
[2021-11-02] VITALS (14 sets, daily range): BP systolic 129–156; BP diastolic 60–96; PULSE 65–73; RESP 12–24; TEMP 36.2–36.7; O2SAT 93–98; BMI 36.9; BMI 37.9
--- NOTE | 2021-11-02 12:39 | DI.RAD.S_ITS ---
PROCEDURE: XR CHEST 2V INDICATIONS: shortness of breath TECHNIQUE: 2 views of the chest were acquired. COMPARISON: None. FINDINGS: Surgical changes and devices: Clips are noted overlying the right hemithorax. Lungs and pleura: There is blunting of the costophrenic angles bilaterally. Mediastinum: Mediastinal contours are normal. Heart size is enlarged. Bones and chest wall: No suspicious bony abnormalities. Soft tissues appear unremarkable. IMPRESSION: There is blunting of the costophrenic angles bilaterally.This may represent scarring vs trace effusions. Dictated by: Faviola Goins M.D. on 11/02/2021 at 13:24 Approved by: Faviola Goins M.D. on 11/02/2021 at 13:25
[2021-11-02 13:03] LABS: Add Manual Diff / Slide Review NO; Basophils Absolute Auto 100 /uL (0-100); Basophils Percent Auto 0.8 % (0-2); Eosinophils Absolute Auto 0 /uL (0-450); Eosinophils Percent Auto 0.7 % (2-4); Hematocrit 32.7 % (36-46); Hemoglobin 11.3 g/dL (12.0-16.0); Lymphocytes Absolute Auto 1200 /uL (1100-4500); Lymphocytes Percent Auto 17.3 % (25-40); Mean Corpuscular HGB Conc 34.6 % (30-36); Mean Corpuscular Hemoglobin 30.8 PG (26-34); Mean Corpuscular Volume 89.2 fL (80-100); Monocytes Absolute Auto 900 /uL (0-900); Monocytes Percent Auto 12.6 % (3-14); Neutrophils Absolute Auto 4700 /uL (1500-7000); Neutrophils Percent Auto 68.6 % (50-75); Platelet Count 533 X10^3/uL (150-400); Red Blood Cell Count 3.67 X10^6/uL (4.0-5.2); Red Cell Distribution Width 14.2 % (11.6-14.8); White Blood Cell Count 6.9 X10^3/uL (4.5-11.0)
[2021-11-02 13:06] LABS: INR 0.9 (0.9-1.3); Prothrombin Time 10.3 SECONDS (10.1-12.7)
[2021-11-02 13:10] LABS: Alanine Aminotransferase 31 IU/L (<35); Albumin 4.4 g/dL (3.5-5.0); Albumin Globulin Ratio 1.4 (1.0-2.8); Alkaline Phosphatase 82 U/L (38-126); Aspartate Aminotransferase 56 IU/L (14-36); BUN Creatinine Ratio 13.9 (6-22); Bilirubin Total 0.7 mg/dL (0.2-1.3); Blood Urea Nitrogen 23 mg/dL (7-17); COVID19 -Nasal RAPID Negative (Negative); Carbon Dioxide 20 mmol/L (22-32); Chloride 82 mmol/L (98-107); Estimated Glomerular Filt Rate 32 mL/min (>60); Globulin 3.1 g/dL (1.7-4.1); Glucose 94 mg/dL (80-110); HEMOLYSIS < 15 (0-50); Potassium 4.2 mmol/L (3.4-5.1); Total Protein 7.5 g/dL (6.3-8.2)
[2021-11-02 13:11] LABS: Lactate (Lactic Acid) 1.4 mmol/L (0.7-2.1)
[2021-11-02 13:17] LABS: Sodium 113 mmol/L (137-145)
[2021-11-02 13:30] LABS: NT-proBNP (BNP-Adult 18+) 1990 pg/mL (<450)
--- NOTE | 2021-11-02 14:04 | DI.CT.S_ITS ---
PROCEDURE: CT HEAD/BRAIN WO CON INDICATIONS: hx cancer + hyponatremia r/o mass TECHNIQUE: Noncontrast 4.5 mm thick angled axial sections acquired from the foramen magnum to the vertex, with coronal and sagittal reformats. For radiation dose reduction, the following was used: automated exposure control, adjustment of mA and/or kV according to patient size. COMPARISON: None. FINDINGS: Image quality: Excellent. CSF spaces: Basal cisterns are patent. No extra-axial fluid collections. Ventricles are normal in size and shape. Brain: No midline shift. No intracranial masses or hemorrhage. Ndiaye-white matter interface is normal. Moderate cerebral and cerebellar volume loss with multifocal white matter chronic ischemic change noted. Atherosclerotic calcification noted associated with cavernous segments of both internal carotid arteries. Skull and face: Calvarium and visualized facial bones are intact, without suspicious lesions. Bilateral intraocular lens replacements noted. Sinuses: Visualized sinuses and mastoids are clear. IMPRESSION: Atrophy and chronic ischemic change without acute hemorrhage or mass effect Approved by: Clay Jeffers M.D. on 11/02/2021 at 13:54
--- NOTE | 2021-11-02 14:04 | DI.CT.S_ITS ---
PROCEDURE: CT ANGIO CHEST PE PROTOCOL INDICATIONS: 76-year-old female with shortness of breath and history of breast cancer TECHNIQUE: After the administration of intravenous contrast, 2 mm thick sections acquired from the pulmonary apices to the posterior costophrenic angles. For radiation dose reduction, the following was used: automated exposure control, adjustment of mA and/or kV according to patient size. COMPARISON: None. FINDINGS: Image quality: Excellent. Pulmonary arteries: Pulmonary arteries are normal in size, and demonstrate no intraluminal filling defects to suggest central pulmonary embolism. Lungs and pleura: Moderate bilateral pleural effusions associated compressive atelectasis. No focal infiltrate. Pulmonary nodules. Mediastinum: Heart size is upper limits of normal, without pericardial effusion. No mediastinal or hilar adenopathy. Thoracic aorta is normal in caliber and enhancement. Esophagus is normal in caliber, without hiatal hernia. Bones and chest wall: No suspicious bony lesions. Ribs and thoracic spine appear intact throughout. Thyroid gland 1.5 cm low-density right thyroid nodule noted. No axillary or supraclavicular adenopathy. Right mastectomy present. Associated surgical clips in the right axilla. No adenopathy. Abdomen: Visualized upper abdominal solid organs appear normal in the early arterial phase of enhancement. IMPRESSION: No evidence of pulmonary embolism, aortic dissection or aneurysm. Moderate bilateral pleural effusions with associated compressive atelectasis. No pulmonary nodules. Right mastectomy Approved by: Clay Jeffers M.D. on 11/02/2021 at 14:06
--- NOTE | 2021-11-02 14:15 | ED.SOB ---
HPI - SOB/Dyspnea General Chief Complaint: Shortness of Breath/Dyspnea Stated Complaint: sob Time Seen by Provider: 11/02/21 13:21 Source: patient Mode of arrival: Ambulatory Limitations: no limitations History of Present Illness HPI Narrative: Patient is a 76-year-old female history of breast cancer with mastectomy in August currently on Anastrozole, hypertension, hyperlipidemia presenting today with increasing shortness of breath. She was actually seen by her PCP today could she has had about 10 days of increasing shortness of breath she has had about 20 lb weight gain. She is currently on Lasix 20 mg daily without a history of congestive heart failure. She feels like her legs are swollen her hands are swollen. She complains of orthopnea and certainly dyspnea on exertion. She denies any chest pain. No dizziness or lightheadedness. She denies any fever or chills. She has overall does not feel well. She states that she is streaking about 6 x 16 oz bottles of water daily. She continues to eat. Related Data Home Medications Medication Instructions Recorded Confirmed loperamide 2 mg capsule 2 mg PO PRN PRN Diarrhea ##0 05/11/16 11/02/21 lisinopril 20 1 tab PO DAILY 08/25/19 11/02/21 mg-hydrochlorothiazide 12.5 mg tablet metoprolol tartrate 100 mg tablet 100 mg PO BID 08/25/19 11/02/21 simvastatin 40 mg tablet 40 mg DAILY 08/25/19 11/02/21 cholecalciferol (vitamin D3) 25 25 mcg PO BID 08/03/21 11/02/21 mcg (1,000 unit) chewable tablet (Vitamin D3) magnesium aspartate-potassium 1 cap PO BID 08/03/21 11/02/21 aspartate 250 mg-250 mg capsule omega-3 fatty acids 500 mg capsule 500 mg PO BID 08/03/21 11/02/21 amlodipine 10 mg tablet See Rx Instructions .Route .COMPLEX 08/17/21 11/02/21 cetirizine 5 mg tablet 5 mg PO DAILY 11/02/21 11/02/21 Previous Rx's Medication Instructions Recorded acetaminophen 325 mg capsule 650 mg PO QID PRN pain #60 caps 08/17/21 (Tylenol) anastrozole 1 mg tablet 1 mg PO DAILY #90 tabs 10/11/21 Allergies Allergy/AdvReac Type Severity Reaction Status Date / Time codeine [CODEINE] Allergy Unknown Rash Verified 11/02/21 12:36 Review of Systems Review of Systems Narrative: GENERAL: + weight gain HEENT: Denies sinus pain, ear pain, sore throat, difficulty swallowing, neck pain RESPIRATORY: See HPI CARDIOVASCULAR: Denies chest pain, palpitations, orthopnea, edema GASTROINTESTINAL: Denies nausea, vomiting, abdominal pain, diarrhea, constipation, melena. : Denies dysuria, frequency, incontinence, hematuria, urinary retention, flank pain. MUSCULOSKELETAL: + edema Denies weakness, joint pain, or bony pain SKIN: No rash, no erythema, no pruritus NEUROLOGIC: Denies weakness, dizziness, headache, numbness, change in speech, confusion PSYCHIATRIC: No concerning psychosocial issues. 12 point review of systems is negative except for those stated above and HPI Patient History Medical History CRF (chronic renal failure) Diabetes High cholesterol HTN (hypertension) Surgical History H/O lumpectomy H/O: hysterectomy Family History Sister Gallstones Father Colon cancer Social History household members: family and none lives independently: Yes occupational status: previously employed Smoking Status: Former smoker alcohol intake: current substance use type: other Smoking Status: Former smoker alcohol intake frequency: 0-2 drinks per day Substance Use Type: marijuana Exam Initial Vital Signs Initial Vital Signs: Vital Signs Temperature 97.2 F L 11/02/21 12:36 Pulse Rate 65 11/02/21 12:36 Respiratory Rate 16 11/02/21 12:36 Blood Pressure 144/65 H 11/02/21 12:36 Pulse Oximetry 98 11/02/21 12:36 Oxygen Delivery Method 11/02/21 12:36 GENERAL: Alert pleasant 76-year-old female HEENT: Head atraumatic,EOMI, pupils reactive, face symmetric, [moist] mucous membranes CARDIOVASCULAR: Regular rate and rhythm without murmurs, rubs or gallops. RESPIRATORY: Breath sounds equal bilaterally, no wheezes rales or rhonchi. ABDOMEN: Soft, nontender. Normoactive bowel sounds all 4 quadrants. No guarding or rebound. EXTREMITIES: Normal range of motion, no clubbing. +3 pitting edema. Neurovascularly intact NEUROLOGICAL: Alert and oriented x4.Normal gait and speech. SKIN: Warm, dry, no laceration, no petechiae, no rashes or lesions. Course Orders Ordered: ED Orders 11/02/21 12:39 XR chest 2V Stat Measure peak expiratory flow ONCE RT Consult Eval and Treat Now 11/02/21 12:43 COVID19 -Nasal RAPID/Pre-Proc Stat Complete Blood Count AUTO DIFF Stat Comprehensive Metabolic Panel Stat Lactate (Lactic Acid) Stat NT-proBNP (BNP-Adult 18+) Stat Prothrombin Time INR Stat 11/02/21 12:49 EKG-12 Lead Stat 11/02/21 14:04 CT angio chest PE protocol Stat CT head/brain wo con Stat 11/02/21 14:32 EKG-12 Lead Stat 11/02/21 15:30 Urinalysis and Microscopic Stat Urine Culture Stat 11/02/21 15:51 EC echo doppler complete Stat 11/02/21 16:07 Electrolytes Stat Troponin & CK Cardiac Panel Stat 11/02/21 16:20 Sodium Urine Random Stat 11/02/21 16:43 TSH [Thyroid Stimulating Hormone] Stat Acetaminophen (Acetaminophen 325 Mg Tablet) 650 mg PO Q6HR PRN PRN Reason: Fever/Mild Pain (1-3) Amlodipine Besylate (Amlodipine 5 Mg Tablet) 10 mg PO BEDTIME OLI Anastrozole (Anastrozole 1 Mg Tablet) 1 mg PO DAILY OLI Atorvastatin Calcium (Atorvastatin 20 Mg Tablet) 20 mg PO BEDTIME OLI Enoxaparin Sodium (Enoxaparin 40 Mg/0.4 Ml Syringe) 40 mg SUBCUT DAILY OLI Furosemide (Furosemide 40 Mg/4 Ml Vial) 40 mg IV DAILY OLI Sodium Chloride (Normal Saline 0.9%) 1,000 mls @ 75 mls/hr IV CONT OLI Ibuprofen (Ibuprofen 400 Mg Tablet) 400 mg PO Q8HR PRN PRN Reason: Pain, Mild (1-3) Loratadine (Loratadine 10 Mg Tablet) 10 mg PO DAILY OLI Metoprolol Tartrate (Metoprolol Ir 50 Mg Tablet) 100 mg PO BID OLI Discontinued Medications Furosemide (Furosemide 40 Mg/4 Ml Vial) 40 mg IV NOW ONE Stop: 11/02/21 15:51 Last Admin: 11/02/21 16:42 Dose: 40 mg Documented By: MAG Vital Signs Vital signs: Vital Signs - 8 hr 11/02/21 12:36 11/02/21 14:00 11/02/21 14:02 Temperature 97.2 F L Pulse Rate 65 66 66 Respiratory Rate 16 24 23 Blood Pressure 144/65 H Pulse Oximetry 98 96 Oxygen Delivery Method Room Air 11/02/21 14:02 11/02/21 14:26 11/02/21 14:26 Temperature Pulse Rate 67 Respiratory Rate 19 Blood Pressure 132/96 H 143/66 H Pulse Oximetry 95 Oxygen Delivery Method 11/02/21 14:30 11/02/21 14:31 11/02/21 14:31 Temperature Pulse Rate 68 68 Respiratory Rate 16 15 Blood Pressure 129/61 Pulse Oximetry 95 95 Oxygen Delivery Method 11/02/21 15:00 11/02/21 15:01 11/02/21 15:01 Temperature Pulse Rate 71 70 Respiratory Rate 22 23 Blood Pressure 156/72 H Pulse Oximetry 96 98 Oxygen Delivery Method 11/02/21 15:30 11/02/21 15:30 11/02/21 16:00 Temperature Pulse Rate 65 Respiratory Rate 12 Blood Pressure 136/64 137/65 Pulse Oximetry 96 Oxygen Delivery Method 11/02/21 16:00 Temperature Pulse Rate 69 Respiratory Rate 17 Blood Pressure Pulse Oximetry 95 Oxygen Delivery Method MDM - SOB/Dyspnea Lab Data Result diagrams: 11/02/21 12:43 11/02/21 16:07 Labs: Lab Results 11/02/21 11/02/21 11/02/21 Range/Units 12:43 12:43 12:43 WBC 6.9 (4.5-11.0) X10^3/uL RBC 3.67 L (4.0-5.2) X10^6/uL Hgb 11.3 L (12.0-16.0) g/dL Hct 32.7 L (36-46) % MCV 89.2 (80-100) fL MCH 30.8 (26-34) PG MCHC 34.6 (30-36) % RDW 14.2 (11.6-14.8) % Plt Count 533 H (150-400) X10^3/uL Neut % (Auto) 68.6 (50-75) % Lymph % (Auto) 17.3 L (25-40) % [place] % (Auto) 12.6 (3-14) % Eos % (Auto) 0.7 L (2-4) % Baso % (Auto) 0.8 (0-2) % Neut # (Auto) 4700 (0140-6377) /uL Lymph # (Auto) 1200 (9276-0699) /uL [place] # (Auto) 900 (0-900) /uL Eos # (Auto) 0 (0-450) /uL Baso # (Auto) 100 (0-100) /uL PT (10.1-12.7) SECONDS INR (0.9-1.3) Sodium 113 L* (137-145) mmol/L Potassium 4.2 (3.4-5.1) mmol/L Chloride 82 L (98-107) mmol/L Carbon Dioxide 20 L (22-32) mmol/L BUN 23 H (7-17) mg/dL Creatinine 1.65 H (0.52-1.04) mg/dL Estimated GFR 32 L (>60) mL/min BUN/Creatinine Ratio 13.9 (6-22) Glucose 94 (80-110) mg/dL Lactate 1.4 (0.7-2.1) mmol/L Calcium 9.0 (8.4-10.2) mg/dL Total Bilirubin 0.7 (0.2-1.3) mg/dL AST 56 H (14-36) IU/L ALT 31 (<35) IU/L Alkaline Phosphatase 82 (38-126) U/L Total Creatine Kinase (30-135) U/L CK-MB (CK-2) (<2.37) ng/mL CK-MB (CK-2) Rel Index (1.5-5.0) % Troponin I (0.01-0.034) ng/mL NT-Pro-B Natriuret Pep (<450) pg/mL Total Protein 7.5 (6.3-8.2) g/dL Albumin 4.4 (3.5-5.0) g/dL Globulin 3.1 (1.7-4.1) g/dL Albumin/Globulin Ratio 1.4 (1.0-2.8) Urine Color Urine Appearance Urine pH (4.5-8.0) Ur Specific [place] (1.000-1.035) Urine Protein (Negative) Urine Glucose (UA) (Negative) g/dL Urine Ketones (NEGATIVE) Urine Occult Blood (Negative) Urine Nitrate (Negative) Urine Bilirubin (NEGATIVE) Urine Urobilinogen (0.2) E.U./dL Ur Leukocyte Esterase (NEGATIVE) Urine RBC (0-5/HPF) Urine WBC (0-5/HPF) Ur Squamous Epith Cells (0-5/HPF) Amorphous Sediment Urine Bacteria (None) Ur Culture Indicated? SARS-CoV-2 (PCR) (Negative) 11/02/21 11/02/21 11/02/21 Range/Units 12:43 12:43 12:43 WBC (4.5-11.0) X10^3/uL RBC (4.0-5.2) X10^6/uL Hgb (12.0-16.0) g/dL Hct (36-46) % MCV (80-100) fL MCH (26-34) PG MCHC (30-36) % RDW (11.6-14.8) % Plt Count (150-400) X10^3/uL Neut % (Auto) (50-75) % Lymph % (Auto) (25-40) % [place] % (Auto) (3-14) % Eos % (Auto) (2-4) % Baso % (Auto) (0-2) % Neut # (Auto) (6480-1883) /uL Lymph # (Auto) (2645-4662) /uL [place] # (Auto) (0-900) /uL Eos # (Auto) (0-450) /uL Baso # (Auto) (0-100) /uL PT 10.3 (10.1-12.7) SECONDS INR 0.9 (0.9-1.3) Sodium (137-145) mmol/L Potassium (3.4-5.1) mmol/L Chloride (98-107) mmol/L Carbon Dioxide (22-32) mmol/L BUN (7-17) mg/dL Creatinine (0.52-1.04) mg/dL Estimated GFR (>60) mL/min BUN/Creatinine Ratio (6-22) Glucose (80-110) mg/dL Lactate (0.7-2.1) mmol/L Calcium (8.4-10.2) mg/dL Total Bilirubin (0.2-1.3) mg/dL AST (14-36) IU/L ALT (<35) IU/L Alkaline Phosphatase (38-126) U/L Total Creatine Kinase (30-135) U/L CK-MB (CK-2) (<2.37) ng/mL CK-MB (CK-2) Rel Index (1.5-5.0) % Troponin I (0.01-0.034) ng/mL NT-Pro-B Natriuret Pep 1990 H (<450) pg/mL Total Protein (6.3-8.2) g/dL Albumin (3.5-5.0) g/dL Globulin (1.7-4.1) g/dL Albumin/Globulin Ratio (1.0-2.8) Urine Color Urine Appearance Urine pH (4.5-8.0) Ur Specific [place] (1.000-1.035) Urine Protein (Negative) Urine Glucose (UA) (Negative) g/dL Urine Ketones (NEGATIVE) Urine Occult Blood (Negative) Urine Nitrate (Negative) Urine Bilirubin (NEGATIVE) Urine Urobilinogen (0.2) E.U./dL Ur Leukocyte Esterase (NEGATIVE) Urine RBC (0-5/HPF) Urine WBC (0-5/HPF) Ur Squamous Epith Cells (0-5/HPF) Amorphous Sediment Urine Bacteria (None) Ur Culture Indicated? SARS-CoV-2 (PCR) Negative (Negative) 11/02/21 11/02/21 11/02/21 Range/Units 15:30 16:07 16:07 WBC (4.5-11.0) X10^3/uL RBC (4.0-5.2) X10^6/uL Hgb (12.0-16.0) g/dL Hct (36-46) % MCV (80-100) fL MCH (26-34) PG MCHC (30-36) % RDW (11.6-14.8) % Plt Count (150-400) X10^3/uL Neut % (Auto) (50-75) % Lymph % (Auto) (25-40) % [place] % (Auto) (3-14) % Eos % (Auto) (2-4) % Baso % (Auto) (0-2) % Neut # (Auto) (4436-0360) /uL Lymph # (Auto) (6065-2130) /uL [place] # (Auto) (0-900) /uL Eos # (Auto) (0-450) /uL Baso # (Auto) (0-100) /uL PT (10.1-12.7) SECONDS INR (0.9-1.3) Sodium 111 L* (137-145) mmol/L Potassium 3.9 (3.4-5.1) mmol/L Chloride 83 L (98-107) mmol/L Carbon Dioxide 22 (22-32) mmol/L BUN (7-17) mg/dL Creatinine (0.52-1.04) mg/dL Estimated GFR (>60) mL/min BUN/Creatinine Ratio (6-22) Glucose (80-110) mg/dL Lactate (0.7-2.1) mmol/L Calcium (8.4-10.2) mg/dL Total Bilirubin (0.2-1.3) mg/dL AST (14-36) IU/L ALT (<35) IU/L Alkaline Phosphatase (38-126) U/L Total Creatine Kinase 262 H (30-135) U/L CK-MB (CK-2) 5.04 H (<2.37) ng/mL CK-MB (CK-2) Rel Index 1.9 (1.5-5.0) % Troponin I < 0.012 (0.01-0.034) ng/mL NT-Pro-B Natriuret Pep (<450) pg/mL Total Protein (6.3-8.2) g/dL Albumin (3.5-5.0) g/dL Globulin (1.7-4.1) g/dL Albumin/Globulin Ratio (1.0-2.8) Urine Color Yellow Urine Appearance Clear Urine pH 5.5 (4.5-8.0) Ur Specific [place] 1.010 (1.000-1.035) Urine Protein 1+ H (Negative) Urine Glucose (UA) Negative (Negative) g/dL Urine Ketones Negative (NEGATIVE) Urine Occult Blood Negative (Negative) Urine Nitrate Negative (Negative) Urine Bilirubin Negative (NEGATIVE) Urine Urobilinogen 0.2 (0.2) E.U./dL Ur Leukocyte Esterase Trace H (NEGATIVE) Urine RBC 1-5/hpf (0-5/HPF) Urine WBC 1-5/hpf (0-5/HPF) Ur Squamous Epith Cells 1-5 /hpf (0-5/HPF) Amorphous Sediment 1+ Urine Bacteria Few (2-10) H (None) Ur Culture Indicated? Specimen cultured SARS-CoV-2 (PCR) (Negative) Urine Dip Bedside Urine Glucose Negative Bedside Urine Bilirubin - Negative Bedside Urine Ketone - Negative Urine Specific [place] 1.010 Bedside Urine Occult Blood - Negative Bedside Urine pH 6.0 Bedside Urine Protein +/- 15 Bedside Urine Urobilinogen - Negative Bedside Urine Nitrite - Negative Bedside Urine Leukocytes - Negative Esterase Imaging Data CT scan - chest: Radiologist's Impression: [facility] [id number] CT Scan Report Signed Patient: Deisy Ortiz MR#: [id number] : 1945 Acct:[id number] Age/Sex: 76 / F Date of Service: 11/02/21 Loc: ED Accession Number: [id number] ?? Procedure: CT angio chest PE protocol Ordering Provider: Lian Dorado D.O. PROCEDURE:? CT ANGIO CHEST PE PROTOCOL ? INDICATIONS:? 76-year-old female with shortness of breath and history of breast cancer ? TECHNIQUE:? After the administration of intravenous contrast, 2 mm thick sections acquired from the pulmonary apices to the posterior costophrenic angles.? For radiation dose reduction, the following was used:? automated exposure control, adjustment of mA and/or kV according to patient size.? ? COMPARISON:? None. ? FINDINGS:? Image quality:? Excellent.? ? Pulmonary arteries:? Pulmonary arteries are normal in size, and demonstrate no intraluminal filling defects to suggest central pulmonary embolism.? ? Lungs and pleura:? Moderate bilateral pleural effusions associated compressive atelectasis.? No focal infiltrate.? Pulmonary nodules. ? Mediastinum:? Heart size is upper limits of normal, without pericardial effusion.? No mediastinal or hilar adenopathy.? Thoracic aorta is normal in caliber and enhancement.? Esophagus is normal in caliber, without hiatal hernia.? ? Bones and chest wall:? No suspicious bony lesions.? Ribs and thoracic spine appear intact throughout.? Thyroid gland 1.5 cm low-density right thyroid nodule noted.? No axillary or supraclavicular adenopathy.? Right mastectomy present.? Associated surgical clips in the right axilla.? No adenopathy. ? Abdomen:? Visualized upper abdominal solid organs appear normal in the early arterial phase of enhancement.? ? IMPRESSION:? ? No evidence of pulmonary embolism, aortic dissection or aneurysm. ? Moderate bilateral pleural effusions with associated compressive atelectasis.? No pulmonary nodules. ? Right mastectomy ? Approved by: Clay Jeffers M.D. on 11/02/2021 at 14:06? Chest x-ray: Radiologist's Impression: Deisy Ortiz MR#: [id number] : 1945 Acct:[id number] Age/Sex: 76 / F Date of Service: 11/02/21 Loc: ED Accession Number: [id number] ?? Procedure: XR chest 2V Ordering Provider: Lian Dorado D.O. PROCEDURE:? XR CHEST 2V ? INDICATIONS:? shortness of breath ? TECHNIQUE:? 2 views of the chest were acquired.? ? COMPARISON:? None. ? FINDINGS:? ? Surgical changes and devices:? Clips are noted overlying the right hemithorax.? ? Lungs and pleura:? There is blunting of the costophrenic angles bilaterally. ? Mediastinum:? Mediastinal contours are normal.? Heart size is enlarged.? ? Bones and chest wall:? No suspicious bony abnormalities.? Soft tissues appear unremarkable.? ? IMPRESSION:? There is blunting of the costophrenic angles bilaterally.This may represent scarring vs trace effusions. ? Dictated by: Faviola Goins M.D. on 11/02/2021 at 13:24 ? ? Approved by: Faviola Goins M.D. on 11/02/2021 at 13:25 ? CT scan - head: Radiologist's Impression: CT Scan Report Signed Patient: Deisy Ortiz MR#: [id number] : 1945 Acct:[id number] Age/Sex: 76 / F Date of Service: 11/02/21 Loc: ED Accession Number: [id number] ?? Procedure: CT head/brain wo con Ordering Provider: Lian Dorado D.O. PROCEDURE:? CT HEAD/BRAIN WO CON ? INDICATIONS:? hx cancer + hyponatremia r/o mass ? TECHNIQUE:? Noncontrast 4.5 mm thick angled axial sections acquired from the foramen magnum to the vertex, with coronal and sagittal reformats.? For radiation dose reduction, the following was used:? automated exposure control, adjustment of mA and/or kV according to patient size.? ? COMPARISON:? None. ? FINDINGS:? Image quality:? Excellent.? ? CSF spaces:? Basal cisterns are patent.? No extra-axial fluid collections.? Ventricles are normal in size and shape.? ? Brain:? No midline shift.? No intracranial masses or hemorrhage.? Ndiaye-white matter interface is normal.? Moderate cerebral and cerebellar volume loss with multifocal white matter chronic ischemic change noted.? Atherosclerotic calcification noted associated with cavernous segments of both internal carotid arteries. ? Skull and face:? Calvarium and visualized facial bones are intact, without suspicious lesions.? Bilateral intraocular lens replacements noted. ? Sinuses:? Visualized sinuses and mastoids are clear.? ? IMPRESSION:? Atrophy and chronic ischemic change without acute hemorrhage or mass effect ? ? ? Approved by: Clay Jeffers M.D. on 11/02/2021 at 13:54? ECG Data Interpretation: Sinus rhythm rate 62 AZ interval 238 QRS 94 QTC 456 with changes low voltage noted MDM Narrative Medical decision making narrative: Patient has had ongoing shortness of breath with exertion orthopnea symptoms consistent with CHF. She clearly is very fluid overloaded with significant 3rd spacing. BNP minimally elevated at 1900. She is found to have sodium of 113, at actually decreased in the ED at L1 wet than. She was given 40 mg of Lasix but does not seem like she had significant output between these 2 numbers. She generally feels weak unwell. It also does not sound like she is drinking excessively it seemed like she eating. CT angio chest ruled out PE and any mass. Head CT was done to rule out any sort of metastatic disease possible SIADH. She overall is stable. Patient seems to be fluid overloaded. Initial plan is to fluid restrict and diurese and monitor sodium. Dr. Concepcion updated on patient's symptoms test results and except. Patient is going to the ICU due to decreasing sodium levels and critically low sodiums were seizure precautions Discharge Plan Departure Patient Disposition: Admitted as Observation Clinical Impression: Hyponatremia, CHF (congestive heart failure) Admit Date/Time: 11/02/21 16:12 Admit Provider: Trinidad Concepcion
--- NOTE | 2021-11-02 14:55 | PC.NURSE ---
bilat le edema 2+ pitting
[2021-11-02 15:46] LABS: Appearance Urine UA CLEAR; Bilirubin Urine UA NEGATIVE (NEGATIVE); Color Urine UA YELLOW; Glucose Urine UA NEGATIVE (Negative); Ketones Urine UA NEGATIVE (NEGATIVE); Leukocyte Esterase Urine UA TRACE (NEGATIVE); Nitrite Urine UA NEGATIVE (Negative); Occult Blood Urine UA NEGATIVE (Negative); Protein Urine UA 1+ (Negative); Urobilinogen Urine UA 0.2 E.U./dL (0.2)
[2021-11-02 15:48] LABS: pH Urine UA 5.5 (4.5-8.0)
--- NOTE | 2021-11-02 15:51 | DI.ECHO.S_ITS ---
[facility]---------[facility] +---------+ : : [address] : : : : [id number] : : : : Phone: [phone] Echocardiogram Report + + :Name: FAIZAN ALVARADO Study Date: 11/02/2021 Height: 62 in : :[facility] ReadingLocation: Weight: 202 lb : : Gender: Female BSA: 1.9 m2 : :: 1945 Age: 76 yrs BP: 129/61 mmHg: :Reason For Study: CONGESTIVE HEART FAILURE : :Ordering Physician: JENNA, : :ETHEL Performed By: Yoly Amador : :Referring: ETHEL WEST : + + Interpretation Summary The left ventricle is normal in size and wall thickness. The ejection fraction is estimated to be 60-65%. The right ventricle is normal in size and function. There is mild mitral regurgitation. There is mild aortic regurgitation. The IVC is dilated (diameter is greater than 2.1 cm) yet it collapses greater than 50% with a sniff. This suggests a right atrial pressure of 8 mm Hg. There is mild luminal irregularity and echogenicity in the abdominal aorta, suggestive of aortic atherosclerotic disease. Procedure: A two-dimensional transthoracic echocardiogram with color flow and Doppler was performed. The study quality was technically adequate. There is no prior echocardiogram noted for this patient. The patient was in sinus rhythm with heart rates between 65-75 bpm during the exam. Left Ventricle: The left ventricle is normal in size and wall thickness. There is no thrombus. The ejection fraction is estimated to be 60-65%. Septal motion is consistent with conduction abnormality. MV E/A: 1.0 Med Peak E' Arturo: 7.1 cm/sec E/E' med: 18.2. Right Ventricle: The right ventricle is normal in size and function. Atria: The left atrium is moderately dilated. Right atrial size is normal. There is no Doppler evidence for an interatrial shunt. Mitral Valve: There is mild mitral annular calcification. There is mild mitral regurgitation. Aortic Valve: The aortic valve is trileaflet. The aortic valve opens well. There is no aortic valve stenosis. There is mild aortic regurgitation. Tricuspid Valve: The tricuspid valve is normal. There is mild tricuspid regurgitation. Pulmonary artery pressures cannot be estimated because of the lack of a measurable TR jet velocity. Pulmonic Valve: The pulmonic valve leaflets are thin and pliable; valve motion is normal. There is mild pulmonic regurgitation. Great Vessels: The aortic root is normal size. The dimensions of the ascending aorta are normal. There is mild luminal irregularity and echogenicity in the abdominal aorta, suggestive of aortic atherosclerotic disease. The IVC is dilated (diameter is greater than 2.1 cm) yet it collapses greater than 50% with a sniff. This suggests a right atrial pressure of 8 mm Hg. Pericardium/ Pleura There is no pericardial effusion. There is no pleural effusion. MMode/2D Measurements & Calculations LVIDd: 5.4 cm LVOT diam: 2.0 cm LVIDs: 3.2 cm Ao root diam: 3.1 cm FS: 40.5 % asc Aorta Diam: 3.4 cm IVSd: 0.98 cm LVPWd: 0.99 cm LV cornell. diameter/BSA (cm/m^2): 2.8 LV sys. diameter/BSA (cm/m^2): 1.7 LA A2 area: 26.2 cm2 RA long axis: 6.1 cm LA A4 area: 26.0 cm2 RA area: 21.1 cm2 LA length (vol): 6.7 cm RA vol: 61.6 ml LA vol: 86.1 ml RA : 32.1 ml/m2 LA vol index: 44.9 ml/m2 IVC diam: 2.3 cm TAPSE: 1.9 cm Doppler Measurements & Calculations Ao V2 max: 186.0 cm/sec LVOT Max Arturo: 142.8 cm/sec Ao V2 mean: 131.8 cm/sec LV V1 max P.2 mmHg Ao max P.8 mmHg LV V1 VTI: 33.3 cm Ao mean P.7 mmHg DAPHNE(I,D): 2.2 cm2 Ao V2 VTI: 47.6 cm DAPHNE(V,D): 2.4 cm2 sev ratio: 0.70 DAPHNE indexed to BSA (cm^2/m^2): 1.1 AI P1/2t: 455.7 msec AI dec slope: 240.5 cm/sec2 MV E max arturo: 129.9 cm/sec PA V2 max: 131.8 cm/sec MV A max arturo: 126.6 cm/sec PA V2 mean: 75.0 cm/sec MV E/A: 1.0 PA mean P.7 mmHg Med Peak E' Arturo: 7.1 cm/sec PA pr(Accel): 44.7 mmHg E/E' med: 18.2 Lat Peak E' Arturo: 10.5 cm/sec E/E' lat: 12.3 E/e' average: 15.3 MV dec time: 0.20 sec SV([facility]): 104.8 ml Reading Physician:05:36 PM
[2021-11-02 16:37] LABS: Creatine Kinase 262 U/L (30-135)
[2021-11-02 16:38] LABS: Carbon Dioxide 22 mmol/L (22-32); Chloride 83 mmol/L (98-107); HEMOLYSIS < 15 (0-50); Potassium 3.9 mmol/L (3.4-5.1)
[2021-11-02 16:40] LABS: Sodium 111 mmol/L (137-145)
[2021-11-02] MEDS: FUROSEMIDE 40 MG/4 ML VIAL IV (16:42)
[2021-11-02 16:48] LABS: Troponin I < 0.012 ng/mL (0.01-0.034)
[2021-11-02 16:52] LABS: CKMB % Relative Index 1.9 % (1.5-5.0); Creatine Kinase MB 5.04 ng/mL (<2.37)
[2021-11-02 17:06] LABS: Amorphous Sediment Urine 1+; Bacteria Urine Few (2-10); Culture Indicated Urine Specimen Cultured; RBC Urine 1-5/HPF (0-5/HPF); Squamous Epithelial Cell Urine 1-5 /HPF (0-5/HPF); WBC Urine 1-5/HPF (0-5/HPF)
[2021-11-02 17:07] LABS: Sodium Urine Random 24 mmol/L (30-90)
[2021-11-02 17:40] LABS: Thyroid Stimulating Hormone 0.639 uIU/mL (0.47-4.68)
--- NOTE | 2021-11-02 18:45 | PM.HP.1 ---
History of Present Illness History of Present Illness Date Patient Seen: 11/02/21 Time Patient Seen: 18:45 Date of Onset of Symptoms: 10/23/21 Chief complaint: sob Narrative: This is a pleasant 76-year-old femaleT who is followed by Dr. Beth for her primary care who presents to the clinic today with complaints of 10 day history of worsening lower extremity edema and shortness of breath. Patient has a history of peripheral edema and is on amlodipine 10 mg daily. She states that she tends to swell when it is hot out. She started swelling was at hot out and she is been drinking a lot a water over 6 glasses of 16 oz of water a day. Over the last several days lower extremity edema has been worsening and she is been having shortness of breath where she has difficulty laying down. She has 3 pillow orthopnea. She has shortness of breath with exertion that is she describes as mild. She denies any chest pain. She denies any lightheadedness or dizziness or palpitations. She denies any leg pain. In the emergency room her workup consisted of a head CT without contrast that was negative, echo that showed normal ejection fraction, CT angiogram that showed no evidence of pulmonary embolus but did show mild pleural effusions. She was found to have a sodium of 113. She tends to run 125 to 130 on her sodium on a regular basis so this is quite low for her. In 2011 she was admitted for confusion associated with hyponatremia. She denies any current confusion or headaches. No known history of seizures. She states that her blood pressures medications were changed several months ago and she was taken off the hydrochlorothiazide. She was admitted to the hospital for further evaluation and treatment of her severe hyponatremia. Past medical history: 1. Hypertension 2. Invasive lobular carcinoma of the right breast diagnosed in July 2021. She is had a right mastectomy in August and does not require chemotherapy or radiation therapy and she currently is on anastrozole. 3. Hyperlipidemia 4. Distant history of tobacco abuse 5. Depression 6. Chronic kidney disease 7. Peripheral edema 8. Shoulder impingement syndrome right Allergies: Codeine Past surgical history: Total abdominal hysterectomy without BSO Right mastectomy Health related behavior Patient has smoked previously but not since the . Patient does not use alcohol on a regular basis. Patient is fairly inactive. Family history: Father with alcohol disuse syndrome, depression, hypertension, hyperlipidemia Mom with asthma, depression, hypertension, hyperlipidemia Siblings with depression and hypertension Family history of stomach cancer Social history: Patient is a . She lives alone in an a [facility]. 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 She is a daughter and a son who live in [facility]. Review of systems: Negative for any fever, chills. Patient had COVID in August but denies any significant symptoms. Patient denies any chronic cough. She does have allergies for which she takes Zyrtec regularly. She denies any hemoptysis. She denies any diarrhea or change in her bowel pattern. She denies any abdominal pain. She denies any rashes. She denies any chest pain. Patient History Medical History CRF (chronic renal failure) Diabetes High cholesterol HTN (hypertension) Surgical History H/O lumpectomy H/O: hysterectomy Family & Social History Family History Sister Gallstones Father Colon cancer Social History: household members family,none Prior Living Arrangements House lives independently Yes Safety & Behavioral: Feels Safe in Current Yes Environment Been Physically Hurt or No Threatened By a Person Tobacco & Substance use: Tobacco type cigarettes Smoking Status Former smoker alcohol intake current alcohol intake frequency 0-2 drinks per day Substance Use Type marijuana Meds Home Medications and Allergies Home Medications Medication Instructions Recorded Confirmed Type loperamide 2 mg capsule 2 mg PO PRN PRN Diarrhea ##0 05/11/16 11/02/21 History lisinopril 20 1 tab PO DAILY 08/25/19 11/02/21 History mg-hydrochlorothiazide 12.5 mg tablet metoprolol tartrate 100 mg tablet 100 mg PO BID 08/25/19 11/02/21 History simvastatin 40 mg tablet 40 mg DAILY 08/25/19 11/02/21 History cholecalciferol (vitamin D3) 25 25 mcg PO BID 08/03/21 11/02/21 History mcg (1,000 unit) chewable tablet (Vitamin D3) magnesium aspartate-potassium 1 cap PO BID 08/03/21 11/02/21 History aspartate 250 mg-250 mg capsule omega-3 fatty acids 500 mg capsule 500 mg PO BID 08/03/21 11/02/21 History acetaminophen 325 mg capsule 650 mg PO QID PRN pain #60 caps 08/17/21 11/02/21 Rx (Tylenol) amlodipine 10 mg tablet See Rx Instructions .Route .COMPLEX 08/17/21 11/02/21 History anastrozole 1 mg tablet 1 mg PO DAILY #90 tabs 10/11/21 11/02/21 Rx cetirizine 5 mg tablet 5 mg PO DAILY 11/02/21 11/02/21 History Allergies Allergy/AdvReac Type Severity Reaction Status Date / Time codeine [CODEINE] Allergy Unknown Rash Verified 11/02/21 12:36 Review of Systems Review of Systems Narrative: 12 point review of systems is negative other than HPI Exam Vital Signs (past 8 hours): - 11/02/21 12:36 11/02/21 14:00 11/02/21 14:02 Temperature 97.2 F L Pulse Rate 65 66 66 Respiratory Rate 16 24 23 Blood Pressure 144/65 H Pulse Oximetry 98 96 Oxygen Delivery Method Room Air 11/02/21 14:02 11/02/21 14:26 11/02/21 14:26 Temperature Pulse Rate 67 Respiratory Rate 19 Blood Pressure 132/96 H 143/66 H Pulse Oximetry 95 Oxygen Delivery Method 11/02/21 14:30 11/02/21 14:31 11/02/21 14:31 Temperature Pulse Rate 68 68 Respiratory Rate 16 15 Blood Pressure 129/61 Pulse Oximetry 95 95 Oxygen Delivery Method 11/02/21 15:00 11/02/21 15:01 11/02/21 15:01 Temperature Pulse Rate 71 70 Respiratory Rate 22 23 Blood Pressure 156/72 H Pulse Oximetry 96 98 Oxygen Delivery Method 11/02/21 15:30 11/02/21 15:30 11/02/21 16:00 Temperature Pulse Rate 65 Respiratory Rate 12 Blood Pressure 136/64 137/65 Pulse Oximetry 96 Oxygen Delivery Method 11/02/21 16:00 11/02/21 16:30 11/02/21 16:30 Temperature Pulse Rate 69 67 Respiratory Rate 17 17 Blood Pressure 140/68 Pulse Oximetry 95 93 Oxygen Delivery Method 11/02/21 16:41 11/02/21 16:41 11/02/21 16:18 Temperature Pulse Rate 73 Respiratory Rate 16 Blood Pressure 139/87 Pulse Oximetry 94 Oxygen Delivery Method Room Air Oxygen Delivery Method Room Air Narrative Exam Narrative: Patient is afebrile, vital signs are stable HEENT: Is unremarkable, mucous membranes moist and pink without lesions Neck: Supple without adenopathy or jugular venous distention or bruits Chest: Patient has inspiratory and expiratory wheezes diffusely worse in the bilateral lower lobes. There is no increased work of breathing. There is no hypoxemia. O2 sats are 94-95% on room air. There is no egophony. There is no crackles. There is no rhonchi Cor: Regular rate and rhythm with distant S1-S2 and no audible murmurs at this time. Abdomen: Positive bowel sounds, soft, nontender, no hepatosplenomegaly., obese Extremities show 3+ pitting edema lower extremities as well as upper extremities Pulses intact 2+ bilaterally Neurologic exam is nonfocal. Skin shows no rashes. Objective Labs Result Diagrams: 11/02/21 12:43 11/02/21 16:07 Labs: Laboratory Results - last 24 hr 11/02/21 11/02/21 11/02/21 12:43 12:43 12:43 WBC 6.9 RBC 3.67 L Hgb 11.3 L Hct 32.7 L MCV 89.2 MCH 30.8 MCHC 34.6 RDW 14.2 Plt Count 533 H Neut % (Auto) 68.6 Lymph % (Auto) 17.3 L [place] % (Auto) 12.6 Eos % (Auto) 0.7 L Baso % (Auto) 0.8 Neut # (Auto) 4700 Lymph # (Auto) 1200 [place] # (Auto) 900 Eos # (Auto) 0 Baso # (Auto) 100 PT INR Sodium 113 L* Potassium 4.2 Chloride 82 L Carbon Dioxide 20 L BUN 23 H Creatinine 1.65 H Estimated GFR 32 L BUN/Creatinine Ratio 13.9 Glucose 94 Lactate 1.4 Calcium 9.0 Total Bilirubin 0.7 AST 56 H ALT 31 Alkaline Phosphatase 82 Total Creatine Kinase CK-MB (CK-2) CK-MB (CK-2) Rel Index Troponin I NT-Pro-B Natriuret Pep Total Protein 7.5 Albumin 4.4 Globulin 3.1 Albumin/Globulin Ratio 1.4 TSH Urine Color Urine Appearance Urine pH Ur Specific [place] Urine Protein Urine Glucose (UA) Urine Ketones Urine Occult Blood Urine Nitrate Urine Bilirubin Urine Urobilinogen Ur Leukocyte Esterase Urine RBC Urine WBC Ur Squamous Epith Cells Amorphous Sediment Urine Bacteria Ur Culture Indicated? Ur Random Sodium SARS-CoV-2 (PCR) 11/02/21 11/02/21 11/02/21 12:43 12:43 12:43 WBC RBC Hgb Hct MCV MCH MCHC RDW Plt Count Neut % (Auto) Lymph % (Auto) [place] % (Auto) Eos % (Auto) Baso % (Auto) Neut # (Auto) Lymph # (Auto) [place] # (Auto) Eos # (Auto) Baso # (Auto) PT 10.3 INR 0.9 Sodium Potassium Chloride Carbon Dioxide BUN Creatinine Estimated GFR BUN/Creatinine Ratio Glucose Lactate Calcium Total Bilirubin AST ALT Alkaline Phosphatase Total Creatine Kinase CK-MB (CK-2) CK-MB (CK-2) Rel Index Troponin I NT-Pro-B Natriuret Pep 1990 H Total Protein Albumin Globulin Albumin/Globulin Ratio TSH Urine Color Urine Appearance Urine pH Ur Specific [place] Urine Protein Urine Glucose (UA) Urine Ketones Urine Occult Blood Urine Nitrate Urine Bilirubin Urine Urobilinogen Ur Leukocyte Esterase Urine RBC Urine WBC Ur Squamous Epith Cells Amorphous Sediment Urine Bacteria Ur Culture Indicated? Ur Random Sodium SARS-CoV-2 (PCR) Negative 11/02/21 11/02/21 11/02/21 15:30 16:07 16:07 WBC RBC Hgb Hct MCV MCH MCHC RDW Plt Count Neut % (Auto) Lymph % (Auto) [place] % (Auto) Eos % (Auto) Baso % (Auto) Neut # (Auto) Lymph # (Auto) [place] # (Auto) Eos # (Auto) Baso # (Auto) PT INR Sodium 111 L* Potassium 3.9 Chloride 83 L Carbon Dioxide 22 BUN Creatinine Estimated GFR BUN/Creatinine Ratio Glucose Lactate Calcium Total Bilirubin AST ALT Alkaline Phosphatase Total Creatine Kinase 262 H CK-MB (CK-2) 5.04 H CK-MB (CK-2) Rel Index 1.9 Troponin I < 0.012 NT-Pro-B Natriuret Pep Total Protein Albumin Globulin Albumin/Globulin Ratio TSH Urine Color Yellow Urine Appearance Clear Urine pH 5.5 Ur Specific [place] 1.010 Urine Protein 1+ H Urine Glucose (UA) Negative Urine Ketones Negative Urine Occult Blood Negative Urine Nitrate Negative Urine Bilirubin Negative Urine Urobilinogen 0.2 Ur Leukocyte Esterase Trace H Urine RBC 1-5/hpf Urine WBC 1-5/hpf Ur Squamous Epith Cells 1-5 /hpf Amorphous Sediment 1+ Urine Bacteria Few (2-10) H Ur Culture Indicated? Specimen cultured Ur Random Sodium SARS-CoV-2 (PCR) 11/02/21 11/02/21 16:20 16:43 WBC RBC Hgb Hct MCV MCH MCHC RDW Plt Count Neut % (Auto) Lymph % (Auto) [place] % (Auto) Eos % (Auto) Baso % (Auto) Neut # (Auto) Lymph # (Auto) [place] # (Auto) Eos # (Auto) Baso # (Auto) PT INR Sodium Potassium Chloride Carbon Dioxide BUN Creatinine Estimated GFR BUN/Creatinine Ratio Glucose Lactate Calcium Total Bilirubin AST ALT Alkaline Phosphatase Total Creatine Kinase CK-MB (CK-2) CK-MB (CK-2) Rel Index Troponin I NT-Pro-B Natriuret Pep Total Protein Albumin Globulin Albumin/Globulin Ratio TSH 0.639 Urine Color Urine Appearance Urine pH Ur Specific [place] Urine Protein Urine Glucose (UA) Urine Ketones Urine Occult Blood Urine Nitrate Urine Bilirubin Urine Urobilinogen Ur Leukocyte Esterase Urine RBC Urine WBC Ur Squamous Epith Cells Amorphous Sediment Urine Bacteria Ur Culture Indicated? Ur Random Sodium 24 L SARS-CoV-2 (PCR) Assessment & Plan Assessment & Plan narrative: 76-year-old female admitted for hyponatremia and peripheral edema and shortness of breath without hypoxemia Assessment 1. Hyponatremia of unclear etiology but suspect that patient tends to run mildly low and now has had fluid intoxication due to heat and peripheral edema. Plan: Will admit to the hospital. She was given IV Lasix. We will start normal saline at 75 cc an hour. We will restrict her fluids. We will monitor closely and follow. We will reassess labs in a.m.. Urine sodium is pending. Chest x-ray and CT scan of the chest show no masses. Head CT shows no masses. Assessment 2. Peripheral edema without evidence of congestive heart failure but patient with probable fluid overload and pleural effusion secondary to this. Plan: Will restrict fluid. Will gently give normal saline. Reviewed echo. Will continue with IV Lasix on a daily basis and give as needed as needed for worsening dyspnea. Initial troponin is negative. We will repeat. Assessment 3. Hypertension Plan: Will continue her outpatient medications which include amlodipine, lisinopril, metoprolol. I am sure the amlodipine is contributing to her peripheral edema we may need to change this. Will likely need to have her take a diuretic on a regular basis and we look at her chart and see where she was taken off hydrochlorothiazide. Possibly due to age. Assessment 4. With recent breast cancer and currently on anastrozole. This is the only new medication but I do not think this is contributing. We will continue and continue to monitor. Will discuss with Oncology. Assessment 5. Wheezing. Patient clinically sounds like COPD. Patient with no history of COPD and distant history of tobacco use. Possibly this is exacerbation because of previous COVID. Certainly pleural effusions or contributing to some of the shortness of breath. Plan: Will consult RT. will do incentive spirometer. Will continue with diuresis. Will not add steroids at this time due to concern for worsening hyponatremia. Patient is stable on room air. Assessment 6. Depression Plan: Continue on outpatient citalopram. No current symptoms. Assessment 7. Allergic rhinitis Plan: Continue on Zyrtec Assessment 8. Hyperlipidemia Plan: Continue on simvastatin Assessment 9. DVT prophylaxis Plan: Lovenox No evidence of PE based on CT angiogram Code status is full code 70 minutes spent with patient discussing with nursing, ER physician, meeting with patient, reviewing her chart and formulating a plan. Also documentation. Time Spent With Patient Critical Care time: I spent a total of [] minutes of critical care time on this patient's care today; this time is exclusive of procedural time.
[2021-11-02 19:26] LABS: Creatine Kinase 282 U/L (30-135); Sodium 112 mmol/L (137-145)
[2021-11-02 19:39] LABS: Troponin I < 0.012 ng/mL (0.01-0.034)
[2021-11-02 19:42] LABS: Creatine Kinase MB 5.67 ng/mL (<2.37)
[2021-11-02] MEDS: ATORVASTATIN 20 MG TABLET PO (20:16)
[2021-11-02] MEDS: METOPROLOL IR 50 MG TABLET 100 MG PO (20:16)
[2021-11-02] MEDS: AMLODIPINE 5 MG TABLET 10 MG PO (20:16)
[2021-11-02] MEDS: SODIUM CHLORIDE 0.9% 1,000 ML 75 ML IV (20:17)
[2021-11-03] VITALS: BP 136/64; PULSE 92; RESP 18; TEMP 37.2; O2SAT 94
[2021-11-03] MEDS: ACETAMINOPHEN 325 MG TABLET 650 MG PO ×2 (00:18→18:31)
[2021-11-03 04:00] VITALS: BP 150/70; PULSE 63; RESP 17; TEMP 36.5; O2SAT 93
[2021-11-03 05:32] LABS: Add Manual Diff / Slide Review NO; Basophils Absolute Auto 0 /uL (0-100); Basophils Percent Auto 0.5 % (0-2); Eosinophils Absolute Auto 0 /uL (0-450); Eosinophils Percent Auto 0.7 % (2-4); Hematocrit 29.9 % (36-46); Hemoglobin 10.5 g/dL (12.0-16.0); Lymphocytes Absolute Auto 1000 /uL (1100-4500); Lymphocytes Percent Auto 15.7 % (25-40); Mean Corpuscular Hemoglobin 31.1 PG (26-34); Mean Corpuscular Volume 88.7 fL (80-100); Monocytes Absolute Auto 1100 /uL (0-900); Monocytes Percent Auto 17.3 % (3-14); Neutrophils Absolute Auto 4300 /uL (1500-7000); Neutrophils Percent Auto 65.8 % (50-75); Platelet Count 486 X10^3/uL (150-400); Red Blood Cell Count 3.37 X10^6/uL (4.0-5.2); Red Cell Distribution Width 14.2 % (11.6-14.8); White Blood Cell Count 6.6 X10^3/uL (4.5-11.0)
[2021-11-03 05:39] LABS: Creatine Kinase 273 U/L (30-135)
[2021-11-03 05:46] LABS: Alanine Aminotransferase 25 IU/L (<35); Albumin 3.4 g/dL (3.5-5.0); Albumin Globulin Ratio 1.4 (1.0-2.8); Alkaline Phosphatase 66 U/L (38-126); Aspartate Aminotransferase 43 IU/L (14-36); BUN Creatinine Ratio 14.7 (6-22); Bilirubin Total 0.3 mg/dL (0.2-1.3); Blood Urea Nitrogen 24 mg/dL (7-17); Calcium 8.6 mg/dL (8.4-10.2); Carbon Dioxide 22 mmol/L (22-32); Chloride 86 mmol/L (98-107); Estimated Glomerular Filt Rate 33 mL/min (>60); Globulin 2.5 g/dL (1.7-4.1); Glucose 98 mg/dL (80-110); HEMOLYSIS < 15 (0-50); Potassium 3.8 mmol/L (3.4-5.1); Total Protein 5.9 g/dL (6.3-8.2)
[2021-11-03 05:48] LABS: Sodium 115 mmol/L (137-145)
[2021-11-03 05:52] LABS: NT-proBNP (BNP-Adult 18+) 1690 pg/mL (<450); Troponin I < 0.012 ng/mL (0.01-0.034)
[2021-11-03 05:54] LABS: CKMB % Relative Index 1.8 % (1.5-5.0); Creatine Kinase MB 5.04 ng/mL (<2.37)
--- NOTE | 2021-11-03 06:27 | PC.NURSE ---
Patient resting in bed most of the shift. Up a few times to BSC with SBA. Tylenol effective for headache. Patient has been A&O, calm and cooperative.
[2021-11-03 08:00] VITALS: BP 136/65; PULSE 68; RESP 21; TEMP 36.8; O2SAT 96
--- NOTE | 2021-11-03 08:36 | P.PN_ITS ---
Subjective Subjective Date Patient Seen: 11/03/21 Time Patient Seen: 08:36 Interval history: Patient seen in [facility] for Dr. Concepcion. Follow-up of hyponatremia and congestive heart failure. Patient is sleeping but overall feeling maybe better today. Has had excellent output. No chest pain. No other significant change. No other complaints. Exam Vital Signs (past 8 hours): - 11/03/21 04:00 Temperature 97.7 F Pulse Rate 63 Respiratory Rate 17 Blood Pressure 150/70 H Pulse Oximetry 93 Oxygen Delivery Method Room Air Narrative Exam Narrative: Alert elderly female sleepy but interactive in no acute distress. Lungs with diffuse rhonchi and basilar crackles. Heart regular rate and rhythm without murmur. Abdomen is benign. Extremities with 2 to 3+ edema. Neurologic exam is unremarkable Objective Labs Result Diagrams: 11/03/21 05:02 11/03/21 05:02 Labs: Laboratory Results - last 24 hr 11/02/21 11/02/21 11/02/21 12:43 12:43 12:43 WBC 6.9 RBC 3.67 L Hgb 11.3 L Hct 32.7 L MCV 89.2 MCH 30.8 MCHC 34.6 RDW 14.2 Plt Count 533 H Neut % (Auto) 68.6 Lymph % (Auto) 17.3 L [place] % (Auto) 12.6 Eos % (Auto) 0.7 L Baso % (Auto) 0.8 Neut # (Auto) 4700 Lymph # (Auto) 1200 [place] # (Auto) 900 Eos # (Auto) 0 Baso # (Auto) 100 PT INR Sodium 113 L* Potassium 4.2 Chloride 82 L Carbon Dioxide 20 L BUN 23 H Creatinine 1.65 H Estimated GFR 32 L BUN/Creatinine Ratio 13.9 Glucose 94 Lactate 1.4 Calcium 9.0 Total Bilirubin 0.7 AST 56 H ALT 31 Alkaline Phosphatase 82 Total Creatine Kinase CK-MB (CK-2) CK-MB (CK-2) Rel Index Troponin I NT-Pro-B Natriuret Pep Total Protein 7.5 Albumin 4.4 Globulin 3.1 Albumin/Globulin Ratio 1.4 TSH Urine Color Urine Appearance Urine pH Ur Specific [place] Urine Protein Urine Glucose (UA) Urine Ketones Urine Occult Blood Urine Nitrate Urine Bilirubin Urine Urobilinogen Ur Leukocyte Esterase Urine RBC Urine WBC Ur Squamous Epith Cells Amorphous Sediment Urine Bacteria Ur Culture Indicated? Ur Random Sodium Nasal Screen MRSA (PCR) SARS-CoV-2 (PCR) 11/02/21 11/02/21 11/02/21 12:43 12:43 12:43 WBC RBC Hgb Hct MCV MCH MCHC RDW Plt Count Neut % (Auto) Lymph % (Auto) [place] % (Auto) Eos % (Auto) Baso % (Auto) Neut # (Auto) Lymph # (Auto) [place] # (Auto) Eos # (Auto) Baso # (Auto) PT 10.3 INR 0.9 Sodium Potassium Chloride Carbon Dioxide BUN Creatinine Estimated GFR BUN/Creatinine Ratio Glucose Lactate Calcium Total Bilirubin AST ALT Alkaline Phosphatase Total Creatine Kinase CK-MB (CK-2) CK-MB (CK-2) Rel Index Troponin I NT-Pro-B Natriuret Pep 1990 H Total Protein Albumin Globulin Albumin/Globulin Ratio TSH Urine Color Urine Appearance Urine pH Ur Specific [place] Urine Protein Urine Glucose (UA) Urine Ketones Urine Occult Blood Urine Nitrate Urine Bilirubin Urine Urobilinogen Ur Leukocyte Esterase Urine RBC Urine WBC Ur Squamous Epith Cells Amorphous Sediment Urine Bacteria Ur Culture Indicated? Ur Random Sodium Nasal Screen MRSA (PCR) SARS-CoV-2 (PCR) Negative 11/02/21 11/02/21 11/02/21 15:30 16:07 16:07 WBC RBC Hgb Hct MCV MCH MCHC RDW Plt Count Neut % (Auto) Lymph % (Auto) [place] % (Auto) Eos % (Auto) Baso % (Auto) Neut # (Auto) Lymph # (Auto) [place] # (Auto) Eos # (Auto) Baso # (Auto) PT INR Sodium 111 L* Potassium 3.9 Chloride 83 L Carbon Dioxide 22 BUN Creatinine Estimated GFR BUN/Creatinine Ratio Glucose Lactate Calcium Total Bilirubin AST ALT Alkaline Phosphatase Total Creatine Kinase 262 H CK-MB (CK-2) 5.04 H CK-MB (CK-2) Rel Index 1.9 Troponin I < 0.012 NT-Pro-B Natriuret Pep Total Protein Albumin Globulin Albumin/Globulin Ratio TSH Urine Color Yellow Urine Appearance Clear Urine pH 5.5 Ur Specific [place] 1.010 Urine Protein 1+ H Urine Glucose (UA) Negative Urine Ketones Negative Urine Occult Blood Negative Urine Nitrate Negative Urine Bilirubin Negative Urine Urobilinogen 0.2 Ur Leukocyte Esterase Trace H Urine RBC 1-5/hpf Urine WBC 1-5/hpf Ur Squamous Epith Cells 1-5 /hpf Amorphous Sediment 1+ Urine Bacteria Few (2-10) H Ur Culture Indicated? Specimen cultured Ur Random Sodium Nasal Screen MRSA (PCR) SARS-CoV-2 (PCR) 11/02/21 11/02/21 11/02/21 16:20 16:43 17:36 WBC RBC Hgb Hct MCV MCH MCHC RDW Plt Count Neut % (Auto) Lymph % (Auto) [place] % (Auto) Eos % (Auto) Baso % (Auto) Neut # (Auto) Lymph # (Auto) [place] # (Auto) Eos # (Auto) Baso # (Auto) PT INR Sodium Potassium Chloride Carbon Dioxide BUN Creatinine Estimated GFR BUN/Creatinine Ratio Glucose Lactate Calcium Total Bilirubin AST ALT Alkaline Phosphatase Total Creatine Kinase CK-MB (CK-2) CK-MB (CK-2) Rel Index Troponin I NT-Pro-B Natriuret Pep Total Protein Albumin Globulin Albumin/Globulin Ratio TSH 0.639 Urine Color Urine Appearance Urine pH Ur Specific [place] Urine Protein Urine Glucose (UA) Urine Ketones Urine Occult Blood Urine Nitrate Urine Bilirubin Urine Urobilinogen Ur Leukocyte Esterase Urine RBC Urine WBC Ur Squamous Epith Cells Amorphous Sediment Urine Bacteria Ur Culture Indicated? Ur Random Sodium 24 L Nasal Screen MRSA (PCR) Negative for mrsa SARS-CoV-2 (PCR) 11/02/21 11/02/21 11/03/21 19:00 19:00 05:02 WBC RBC Hgb Hct MCV MCH MCHC RDW Plt Count Neut % (Auto) Lymph % (Auto) [place] % (Auto) Eos % (Auto) Baso % (Auto) Neut # (Auto) Lymph # (Auto) [place] # (Auto) Eos # (Auto) Baso # (Auto) PT INR Sodium 112 L* Potassium Chloride Carbon Dioxide BUN Creatinine Estimated GFR BUN/Creatinine Ratio Glucose Lactate Calcium Total Bilirubin AST ALT Alkaline Phosphatase Total Creatine Kinase 282 H 273 H CK-MB (CK-2) 5.67 H 5.04 H CK-MB (CK-2) Rel Index 2.0 1.8 Troponin I < 0.012 < 0.012 NT-Pro-B Natriuret Pep 1690 H Total Protein Albumin Globulin Albumin/Globulin Ratio TSH Urine Color Urine Appearance Urine pH Ur Specific [place] Urine Protein Urine Glucose (UA) Urine Ketones Urine Occult Blood Urine Nitrate Urine Bilirubin Urine Urobilinogen Ur Leukocyte Esterase Urine RBC Urine WBC Ur Squamous Epith Cells Amorphous Sediment Urine Bacteria Ur Culture Indicated? Ur Random Sodium Nasal Screen MRSA (PCR) SARS-CoV-2 (PCR) 11/03/21 11/03/21 05:02 05:02 WBC 6.6 RBC 3.37 L Hgb 10.5 L Hct 29.9 L MCV 88.7 MCH 31.1 MCHC 35.0 RDW 14.2 Plt Count 486 H Neut % (Auto) 65.8 Lymph % (Auto) 15.7 L [place] % (Auto) 17.3 H Eos % (Auto) 0.7 L Baso % (Auto) 0.5 Neut # (Auto) 4300 Lymph # (Auto) 1000 L [place] # (Auto) 1100 H Eos # (Auto) 0 Baso # (Auto) 0 PT INR Sodium 115 L* Potassium 3.8 Chloride 86 L Carbon Dioxide 22 BUN 24 H Creatinine 1.63 H Estimated GFR 33 L BUN/Creatinine Ratio 14.7 Glucose 98 Lactate Calcium 8.6 Total Bilirubin 0.3 AST 43 H ALT 25 Alkaline Phosphatase 66 Total Creatine Kinase CK-MB (CK-2) CK-MB (CK-2) Rel Index Troponin I NT-Pro-B Natriuret Pep Total Protein 5.9 L Albumin 3.4 L Globulin 2.5 Albumin/Globulin Ratio 1.4 TSH Urine Color Urine Appearance Urine pH Ur Specific [place] Urine Protein Urine Glucose (UA) Urine Ketones Urine Occult Blood Urine Nitrate Urine Bilirubin Urine Urobilinogen Ur Leukocyte Esterase Urine RBC Urine WBC Ur Squamous Epith Cells Amorphous Sediment Urine Bacteria Ur Culture Indicated? Ur Random Sodium Nasal Screen MRSA (PCR) SARS-CoV-2 (PCR) [facility] Medical History CRF (chronic renal failure) Diabetes High cholesterol HTN (hypertension) Surgical History H/O lumpectomy H/O: hysterectomy Family History Sister Gallstones Father Colon cancer Social History household members: family and none lives independently: Yes occupational status: previously employed Smoking Status: Former smoker alcohol intake: current substance use type: other Assessment & Plan Assessment & Plan narrative: Hyponatremia. Probably secondary to water intoxication. Continue on fluid restriction. Need slow improvement. Complicated by her congestive heart failure. Will continue gentle hydration with saline in view of her congestive heart failure and watch closely. Trending in the right direction. Re-evaluate in a.m.. Congestive heart failure. Elevated BNP. Left heart. Discussed with patient. Excellent urine output. Will continue IV Lasix. Would be more aggressive with sodium was not so low. But will half to continue at current Lasix dose watching her sodium closely. She seems to be trending in the right direction and doing well. Pleural effusions probably secondary to this. Elevated CPK. Echo showed no evidence of significant cardiac abnormality. May have been demand injury. Troponins normal. Could have been possibly earlier in the week. May not even be cardiac. But at this point will trend seems to be trending in the right direction with no evidence of significant cardiac injury. Will follow. Peripheral edema periods significant. Due to combination of water intake and congestive heart failure. Will follow. Hypertension. Stable. No change at this time. Recent diagnosis of breast cancer. Does not appear to be significantly abnormal at this time will continue to follow with Oncology. No change in treatment at this time. Wheezing. Possible COPD although may be secondary to fluid issue. No evidence of infection. Will continue to follow with diuresis. But my guess is no further treatment will be needed except for fluid normalization. Depression. Stable. Continue usual medicines. Allergic rhinitis. Normal. Follow-up as needed continue Zyrtec. Hyperlipidemia. Stable continues to miss statin. DVT prophylaxis on Lovenox. GI prophylaxis not needed. Code status full. Disposition. This is going to be a slow process. Due to the overriding concerns between her fluid status and her sodium. But were trending in the right direction probably will need through the weekend but will see how things go. 40 minutes spent prepping to see patient seeing patient discussing with nurse and orders and dictation Time Spent With Patient Critical Care time: I spent a total of [] minutes of critical care time on this patient's care today; this time is exclusive of procedural time.
[2021-11-03] MEDS: METOPROLOL IR 50 MG TABLET 100 MG PO ×2 (08:43→20:03)
[2021-11-03] MEDS: ENOXAPARIN 40 MG/0.4 ML SYRINGE SUBCUT (08:43)
[2021-11-03] MEDS: LORATADINE 10 MG TABLET PO (08:44)
[2021-11-03] MEDS: FUROSEMIDE 40 MG/4 ML VIAL IV (08:44)
[2021-11-03] MEDS: SODIUM CHLORIDE 0.9% 1,000 ML 75 ML IV ×2 (09:26→23:11)
[2021-11-03 10:03] LABS: Add Manual Diff / Slide Review NO; Basophils Absolute Auto 0 /uL (0-100); Basophils Percent Auto 0.7 % (0-2); Eosinophils Absolute Auto 100 /uL (0-450); Hemoglobin 11.3 g/dL (12.0-16.0); Lymphocytes Absolute Auto 1000 /uL (1100-4500); Lymphocytes Percent Auto 16.6 % (25-40); Mean Corpuscular HGB Conc 34.1 % (30-36); Mean Corpuscular Hemoglobin 30.5 PG (26-34); Mean Corpuscular Volume 89.6 fL (80-100); Monocytes Absolute Auto 700 /uL (0-900); Monocytes Percent Auto 12.8 % (3-14); Neutrophils Absolute Auto 4000 /uL (1500-7000); Neutrophils Percent Auto 68.9 % (50-75); Platelet Count 538 X10^3/uL (150-400); Red Blood Cell Count 3.68 X10^6/uL (4.0-5.2); Red Cell Distribution Width 14.4 % (11.6-14.8); White Blood Cell Count 5.8 X10^3/uL (4.5-11.0)
[2021-11-03 10:17] LABS: Creatine Kinase 255 U/L (30-135)
[2021-11-03 10:19] LABS: Alanine Aminotransferase 26 IU/L (<35); Albumin 3.8 g/dL (3.5-5.0); Albumin Globulin Ratio 1.4 (1.0-2.8); Alkaline Phosphatase 73 U/L (38-126); Aspartate Aminotransferase 47 IU/L (14-36); BUN Creatinine Ratio 12.3 (6-22); Bilirubin Total 0.5 mg/dL (0.2-1.3); Blood Urea Nitrogen 21 mg/dL (7-17); Carbon Dioxide 25 mmol/L (22-32); Chloride 85 mmol/L (98-107); Estimated Glomerular Filt Rate 31 mL/min (>60); Globulin 2.8 g/dL (1.7-4.1); Glucose 130 mg/dL (80-110); HEMOLYSIS < 15 (0-50); Potassium 3.8 mmol/L (3.4-5.1); Total Protein 6.6 g/dL (6.3-8.2)
[2021-11-03 10:27] LABS: Sodium 118 mmol/L (137-145)
[2021-11-03 10:33] LABS: Troponin I < 0.012 ng/mL (0.01-0.034)
[2021-11-03 10:48] LABS: Creatine Kinase MB 5.12 ng/mL (<2.37)
[2021-11-03 12:00] VITALS: BP 136/65; PULSE 54; RESP 21; TEMP 37; O2SAT 95
--- NOTE | 2021-11-03 14:18 | CM.DANOTE ---
DCP Assessment: Payor: Al PCP: MD Ignacia Pt is a 76 y.o. F who presented to the ER complaining of increasing shortness of breath. Pt was seen by PCP prior to coming into the ED. Pt currently on lasix and complains of legs and hands being swollen. Pt has a current history of having breast cancer with mastectomy in August. Pt currently on anastrozole for her breast cancer. CT was done to rule out mets. Pt admitted to the ICU for further evaluation of her decreasing sodium levels and seizure precautions. DCP met with pt this morning to discuss discharge needs. Pt sitting up in bed. DCP introduced herself and role. Pt states that she lives with her sister, Alpa, in a single story house. Pt states that she is independent at baseline and denies any DME use. Pt states that she still drives and runs her own errands. Pt denies using home health in the past. Pt states that she has a daughter locally, who lives in [place]. Pt declines any resources at this time. DCP to continue to monitor. White board updated and instructed to call with any further questions. P: Once pt is medically stable to discharge, pt to discharge home via sister POV. 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 Yes: POLST Advance Directives on File Yes History Provided By Patient Prior Living Arrangements House Household Members family,none Type of transporation used prior to Drives own vehicle admit Independent with ADL's Yes Is patient alert and oriented? Yes Caregiver for Another No Discharge Plan Home Referrals Initiated None needed Additional Comment At this time Whiteboard Updated in Patient Room with Yes name and ext. # of Refrigerator Repairman Comment Instructed to call Review Status In Process Please Provide Date Initial DC 11/03/21 Assessment Was Performed Next Review Type Continued Stay Review
[2021-11-03] MEDS: ANASTROZOLE 1 MG TABLET PO (14:57)
[2021-11-03 16:00] VITALS: BP 131/64; PULSE 65; RESP 17; TEMP 36.1; O2SAT 94
[2021-11-03 16:59] LABS: Sodium 118 mmol/L (137-145)
[2021-11-03 20:00] VITALS: BP 132/61; PULSE 68; RESP 18; TEMP 36.8; O2SAT 93
[2021-11-03] MEDS: IBUPROFEN 400 MG TABLET PO (20:03)
[2021-11-03] MEDS: ATORVASTATIN 20 MG TABLET PO (20:04)
[2021-11-03] MEDS: AMLODIPINE 5 MG TABLET 10 MG PO (20:04)
[2021-11-04] VITALS: BP 132/64; PULSE 65; RESP 16; TEMP 36.9; O2SAT 93
[2021-11-04 04:00] VITALS: BP 148/68; PULSE 70; RESP 17; TEMP 36.6; O2SAT 95
--- NOTE | 2021-11-04 05:55 | PC.NURSE ---
Patient has been resting in bed most of the shift. Up to the BSC couple of times. Patient c/o back pain at the beginning of the shift, Ibuprofen effective to help with discomfort. Patient has been A&O, calm and cooperative.
[2021-11-04 08:00] VITALS: BP 126/59; PULSE 68; RESP 19; TEMP 36.7; O2SAT 94
--- NOTE | 2021-11-04 08:04 | PM.PN.1 ---
Subjective Subjective Date Patient Seen: 11/04/21 Time Patient Seen: 08:05 Interval history: Patient gradually improving. This morning she is complaining of back pain. Her swelling is less. Her sodium has been trending up. Her wheezing and shortness of breath improved significantly yesterday still some mild shortness of breath. Ibuprofen is helpful for her back pain but she is worried about her kidney function. Otherwise in her history Review of systems, 12 point is negative other than above Exam Vital Signs (past 8 hours): - 11/04/21 04:00 Temperature 97.8 F Pulse Rate 70 Respiratory Rate 17 Blood Pressure 148/68 H Pulse Oximetry 95 Oxygen Delivery Method Room Air Oxygen Flow Rate 0 Narrative Exam Narrative: Afebrile, vital signs are stable Patient is alert and oriented no apparent distress HEENT is unremarkable Neck is supple without adenopathy or thyromegaly Chest: Improved air exchange still with scattered wheeze left lower lobe but no rhonchi no crackles Cor regular rate and rhythm without a murmur Abdomen: Positive bowel sounds, soft, nontender, nondistended Extremities: Patient with improved swelling. Still with 1+ or more pitting edema right lower extremity but left lower extremity is only trace. Right upper extremity still shows significant edema but improved still difficulty closing her fist due to edema this is much more than on the left her mastectomy site is clean and dry. Back shows tenderness over the lower vertebral bodies and paravertebral muscles Neurologic exam nonfocal Objective Labs Result Diagrams: 11/03/21 09:23 11/03/21 16:20 Labs: Laboratory Results - last 24 hr 11/03/21 11/03/21 11/03/21 09:23 09:23 09:23 WBC 5.8 RBC 3.68 L Hgb 11.3 L Hct 33.0 L MCV 89.6 MCH 30.5 MCHC 34.1 RDW 14.4 Plt Count 538 H Neut % (Auto) 68.9 Lymph % (Auto) 16.6 L Swisher % (Auto) 12.8 Eos % (Auto) 1.0 L Baso % (Auto) 0.7 Neut # (Auto) 4000 Lymph # (Auto) 1000 L Swisher # (Auto) 700 Eos # (Auto) 100 Baso # (Auto) 0 Sodium 118 L* Potassium 3.8 Chloride 85 L Carbon Dioxide 25 BUN 21 H Creatinine 1.71 H Estimated GFR 31 L BUN/Creatinine Ratio 12.3 Glucose 130 H Calcium 9.0 Total Bilirubin 0.5 AST 47 H ALT 26 Alkaline Phosphatase 73 Total Creatine Kinase 255 H CK-MB (CK-2) 5.12 H CK-MB (CK-2) Rel Index 2.0 Troponin I < 0.012 Total Protein 6.6 Albumin 3.8 Globulin 2.8 Albumin/Globulin Ratio 1.4 11/03/21 16:20 WBC RBC Hgb Hct MCV MCH MCHC RDW Plt Count Neut % (Auto) Lymph % (Auto) Swisher % (Auto) Eos % (Auto) Baso % (Auto) Neut # (Auto) Lymph # (Auto) Swisher # (Auto) Eos # (Auto) Baso # (Auto) Sodium 118 L* Potassium Chloride Carbon Dioxide BUN Creatinine Estimated GFR BUN/Creatinine Ratio Glucose Calcium Total Bilirubin AST ALT Alkaline Phosphatase Total Creatine Kinase CK-MB (CK-2) CK-MB (CK-2) Rel Index Troponin I Total Protein Albumin Globulin Albumin/Globulin Ratio PFSH Medical History CRF (chronic renal failure) Diabetes High cholesterol HTN (hypertension) Surgical History H/O lumpectomy H/O: hysterectomy Family History Sister Gallstones Father Colon cancer Social History household members: family and none lives independently: Yes occupational status: previously employed Smoking Status: Former smoker alcohol intake: current substance use type: other Assessment & Plan Assessment & Plan narrative: Assessment 1. Hyponatremia of unclear etiology but suspect that patient tends to run mildly low and now has had fluid intoxication due to heat and peripheral edema. Patient is slowly improving with fluid restriction and normal saline IV hydration Plan:? Will stop IV Lasix today. Will continue with the normal saline IV fluids. Sodium is still pending today. Anticipate she will be hospitalized for another day. Will adjust fluids pending results of sodium today but likely continue and then the plan would be to stop this and send her home tomorrow and follow-up as an outpatient. Assessment 2. Peripheral edema without evidence of congestive heart failure but patient with probable fluid overload and pleural effusion secondary to this. In part this is related to her recent right mastectomy which is causing in part her right upper extremity edema. Overall she is markedly improved. We will stop her IV Lasix and just give oral Lasix due to worsening renal insufficiency Plan:? Will restrict fluid.? Will gently give normal saline. Echo was normal with normal ejection fraction Assessment 3. Hypertension Plan:? Will continue her outpatient medications which include amlodipine, lisinopril, metoprolol.? I am sure the amlodipine is contributing to her peripheral edema we may need to change this.? Will likely need to have her take a diuretic on a regular basis and we look at her chart and see where she was taken off hydrochlorothiazide.? Possibly due to age. Assessment 4. recent breast cancer and currently on anastrozole.? This is the only new medication but I do not think this is contributing.? We will continue and continue to monitor.? Will discuss with Oncology. Assessment 5.? Wheezing with probable underlying COPD which has not been diagnosed but patient with distant history of smoking. Wheezing is better. Continue with RT and was significantly improved with IV Lasix. Will continue to monitor. Assessment 6. Depression Plan:? Continue on outpatient citalopram.? No current symptoms. Assessment 7. Allergic rhinitis Plan: Continue on Zyrtec Assessment 8. Hyperlipidemia Plan: Continue on simvastatin Assessment 9. DVT prophylaxis Plan: Lovenox No evidence of PE based on CT angiogram Assessment 10. Acute renal insufficiency suspect related to fluid restriction and IV Lasix. Plan will go ahead and stop IV Lasix and will reassess in a.m.. I think she does still need a diuretic. I do not want to put her back on hydrochlorothiazide as this could worsen her hyponatremia. Will do oral Lasix but watch kidneys closely. Will use NSAIDs sparingly Assessment 11. Low back pain suspect multifactorial but patient with history of breast cancer Plan: Will do x-ray of her lumbosacral spine. She can have ice or heat. She can have cyclobenzaprine as needed. She can have Tylenol as needed. Will give some hydrocodone just for breakthrough pain if needed. And discussing importance of ambulation today. Code status is full code Time Spent With Patient Critical Care time: I spent a total of [] minutes of critical care time on this patient's care today; this time is exclusive of procedural time.
[2021-11-04 08:08] LABS: Alanine Aminotransferase 25 IU/L (<35); Albumin 3.4 g/dL (3.5-5.0); Albumin Globulin Ratio 1.2 (1.0-2.8); Alkaline Phosphatase 60 U/L (38-126); Aspartate Aminotransferase 41 IU/L (14-36); BUN Creatinine Ratio 12.1 (6-22); Bilirubin Total 0.3 mg/dL (0.2-1.3); Blood Urea Nitrogen 20 mg/dL (7-17); Calcium 8.3 mg/dL (8.4-10.2); Carbon Dioxide 24 mmol/L (22-32); Chloride 92 mmol/L (98-107); Estimated Glomerular Filt Rate 32 mL/min (>60); Globulin 2.9 g/dL (1.7-4.1); Glucose 99 mg/dL (80-110); HEMOLYSIS < 15 (0-50); Potassium 3.5 mmol/L (3.4-5.1); Sodium 121 mmol/L (137-145); Total Protein 6.3 g/dL (6.3-8.2)
[2021-11-04 08:09] LABS: Add Manual Diff / Slide Review NO; Basophils Absolute Auto 0 /uL (0-100); Basophils Percent Auto 0.8 % (0-2); Eosinophils Absolute Auto 100 /uL (0-450); Eosinophils Percent Auto 1.2 % (2-4); Hematocrit 29.8 % (36-46); Hemoglobin 10.3 g/dL (12.0-16.0); Lymphocytes Absolute Auto 1300 /uL (1100-4500); Lymphocytes Percent Auto 21.2 % (25-40); Mean Corpuscular HGB Conc 34.5 % (30-36); Mean Corpuscular Hemoglobin 30.8 PG (26-34); Mean Corpuscular Volume 89.4 fL (80-100); Monocytes Absolute Auto 1400 /uL (0-900); Monocytes Percent Auto 22.6 % (3-14); Neutrophils Absolute Auto 3300 /uL (1500-7000); Neutrophils Percent Auto 54.2 % (50-75); Platelet Count 478 X10^3/uL (150-400); Red Blood Cell Count 3.33 X10^6/uL (4.0-5.2); Red Cell Distribution Width 14.2 % (11.6-14.8); White Blood Cell Count 6.1 X10^3/uL (4.5-11.0)
--- NOTE | 2021-11-04 08:19 | P.PN_ITS ---
Exam Vital Signs (past 8 hours): - 11/04/21 04:00 Temperature 97.8 F Pulse Rate 70 Respiratory Rate 17 Blood Pressure 148/68 H Pulse Oximetry 95 Oxygen Delivery Method Room Air Oxygen Flow Rate 0 Objective Labs Result Diagrams: 11/04/21 07:45 11/04/21 07:45 Labs: Laboratory Results - last 24 hr 11/03/21 11/03/21 11/03/21 09:23 09:23 09:23 WBC 5.8 RBC 3.68 L Hgb 11.3 L Hct 33.0 L MCV 89.6 MCH 30.5 MCHC 34.1 RDW 14.4 Plt Count 538 H Neut % (Auto) 68.9 Lymph % (Auto) 16.6 L Sutton % (Auto) 12.8 Eos % (Auto) 1.0 L Baso % (Auto) 0.7 Neut # (Auto) 4000 Lymph # (Auto) 1000 L [place] # (Auto) 700 Eos # (Auto) 100 Baso # (Auto) 0 Sodium 118 L* Potassium 3.8 Chloride 85 L Carbon Dioxide 25 BUN 21 H Creatinine 1.71 H Estimated GFR 31 L BUN/Creatinine Ratio 12.3 Glucose 130 H Calcium 9.0 Total Bilirubin 0.5 AST 47 H ALT 26 Alkaline Phosphatase 73 Total Creatine Kinase 255 H CK-MB (CK-2) 5.12 H CK-MB (CK-2) Rel Index 2.0 Troponin I < 0.012 Total Protein 6.6 Albumin 3.8 Globulin 2.8 Albumin/Globulin Ratio 1.4 11/03/21 11/04/21 11/04/21 16:20 07:45 07:45 WBC 6.1 RBC 3.33 L Hgb 10.3 L Hct 29.8 L MCV 89.4 MCH 30.8 MCHC 34.5 RDW 14.2 Plt Count 478 H Neut % (Auto) 54.2 Lymph % (Auto) 21.2 L [place] % (Auto) 22.6 H Eos % (Auto) 1.2 L Baso % (Auto) 0.8 Neut # (Auto) 3300 Lymph # (Auto) 1300 [place] # (Auto) 1400 H Eos # (Auto) 100 Baso # (Auto) 0 Sodium 118 L* 121 L Potassium 3.5 Chloride 92 L Carbon Dioxide 24 BUN 20 H Creatinine 1.65 H Estimated GFR 32 L BUN/Creatinine Ratio 12.1 Glucose 99 Calcium 8.3 L Total Bilirubin 0.3 AST 41 H ALT 25 Alkaline Phosphatase 60 Total Creatine Kinase CK-MB (CK-2) CK-MB (CK-2) Rel Index Troponin I Total Protein 6.3 Albumin 3.4 L Globulin 2.9 Albumin/Globulin Ratio 1.2 [facility] Medical History CRF (chronic renal failure) Diabetes High cholesterol HTN (hypertension) Surgical History H/O lumpectomy H/O: hysterectomy Family History Sister Gallstones Father Colon cancer Social History household members: family and none lives independently: Yes occupational status: previously employed Smoking Status: Former smoker alcohol intake: current substance use type: other Assessment & Plan Assessment & Plan narrative: Addendum to today's chart note Acute HFpEF Improved with IV Lasix. Will stop IV Lasix. Breathing improved. Suspect multifactorial. Reviewed normal echo Time Spent With Patient Critical Care time: I spent a total of [] minutes of critical care time on this patient's care today; this time is exclusive of procedural time.
--- NOTE | 2021-11-04 08:25 | DI.RAD.S_ITS ---
PROCEDURE: XR LUMBAR SPINE 2-3V INDICATIONS: back pain; breast cancer TECHNIQUE: 3 views of the lumbar spine were acquired. COMPARISON: [facility], , L-SPINE 2-3 VIEWS, 02/28/2007, 10:06. FINDINGS: Bones: 5 [id number] vertebrae are present. There is normal bony alignment. No vertebral body compression fractures. No suspicious bony lesions. Multilevel degenerative changes of the lumbar spine are seen. Disc space narrowing at L2-3 through L5-S1 with retrolisthesis and endplate osteophytes. Severe facet arthrosis in the lower lumbar spine. Soft tissues: Overlying bowel gas pattern is normal. No suspicious soft tissue calcifications. The aorta has atherosclerotic calcifications. IMPRESSION: Multilevel degenerative changes of the lumbar spine with multilevel disc disease and facet arthrosis. Dictated by: Zachariah Jack M.D. on 11/04/2021 at 8:47 Approved by: Zachariah Jack M.D. on 11/04/2021 at 8:53
[2021-11-04] MEDS: CYCLOBENZAPRINE 10 MG TABLET PO (08:45)
[2021-11-04] MEDS: FUROSEMIDE 40 MG TABLET PO (08:45)
[2021-11-04] MEDS: ENOXAPARIN 40 MG/0.4 ML SYRINGE SUBCUT (08:45)
[2021-11-04] MEDS: HYDROCODONE/ACET 5/325 TABLET 1 TAB PO (08:45)
[2021-11-04] MEDS: METOPROLOL IR 50 MG TABLET 100 MG PO ×2 (08:45→20:56)
[2021-11-04] MEDS: LORATADINE 10 MG TABLET PO (08:45)
[2021-11-04] MEDS: ANASTROZOLE 1 MG TABLET PO (08:47)
[2021-11-04 12:00] VITALS: BP 132/69; PULSE 64; RESP 17; TEMP 37.2; O2SAT 95
[2021-11-04] MEDS: SODIUM CHLORIDE 0.9% 1,000 ML 75 ML IV (13:10)
[2021-11-04] MEDS: POTASSIUM CHLORIDE 20 MEQ TAB PO (17:37)
[2021-11-04 17:38] VITALS: BP 131/63; PULSE 63; RESP 22; TEMP 37.4; O2SAT 94
--- NOTE | 2021-11-04 17:49 | DIET.CONS ---
Dietary Consultation Note Admission Date: 11/02/2021 16:12 Assessment: 76 y/o admitted with LE edema and SOB. States she is feeling much better today. Reports h/o hyponatremia. Also PMH of HTN, peripheral edema, HLD, and CKD. Diet recall indicates some high sodium meals/snacks, ie Ramen and fruit with salt added. States she often gets increased swelling on hot days. Na intake may exacerbate edema. Diet recall: 12p: Ramen with soy sauce and veggies or salad or sandwich 4p: crackers with cheese and martini 8p: salmon or shrimp, veggies, potatoes or pasta or quinoa Reports h/o T2DM remission. Reported HgA1c of 5.5% without meds. Endorses 80# weight loss over years by smaller portions. H/o overeaters anonymous. Ht: 157.48 cm Wt: 94.5 kg BMI: 37.9 Last BM: 11/04/21 (11/04/21 11:00) MNA: 14 Avinash Score: 22 Diet: 11/03/21 Breakfast Fluid Restriction Diet Diet Modifications: Total fluid amount: 1,200 Amount allotted to patient trays: 200 Free water included in total: No Fluid in addition to trays: 8795-3124 amount: 800 4820-7120 amount: 400 Nutrition Percent Meal Consumed 75% 11/03/21 18:33 Percent Meal Consumed 100% 11/03/21 13:15 Percent Meal Consumed 75% 11/03/21 10:25 Labs: RBC 3.33 X10^6/uL (4.0-5.2) L 11/04/21 07:45 Hgb 10.3 g/dL (12.0-16.0) L 11/04/21 07:45 Hct 29.8 % (36-46) L 11/04/21 07:45 Creatinine 1.65 mg/dL (0.52-1.04) H 11/04/21 07:45 Lactate 1.4 mmol/L (0.7-2.1) 11/02/21 12:43 NT-Pro-B Natriuret Pep 1690 pg/mL (<450) H 11/03/21 05:02 Nutrition Diagnosis: Predicted excessive sodium intake r/t nutrition related knowledge deficit aeb diet recall and pt report Interventions: MNT for sodium intake; Reviewed ways to reduce sodium in meals, ie ramen. Monitoring/Evaluations: prn Electronically Signed by: Gita Peoples 11/04/21 17:49 Clinical Dietitian [address] [address]
[2021-11-04 20:00] VITALS: BP 141/65; PULSE 71; RESP 16; TEMP 37.2; O2SAT 93
[2021-11-04] MEDS: ATORVASTATIN 20 MG TABLET PO (20:56)
[2021-11-04] MEDS: AMLODIPINE 5 MG TABLET 10 MG PO (20:56)
[2021-11-05] VITALS: BP 141/65; PULSE 64; RESP 17; TEMP 36.8; O2SAT 97
[2021-11-05] MEDS: SODIUM CHLORIDE 0.9% 1,000 ML 75 ML IV (02:33)
[2021-11-05 04:00] VITALS: BP 139/69; PULSE 63; RESP 19; TEMP 37.3; O2SAT 94
[2021-11-05 05:29] LABS: Add Manual Diff / Slide Review NO; Basophils Absolute Auto 0 /uL (0-100); Basophils Percent Auto 0.7 % (0-2); Eosinophils Absolute Auto 100 /uL (0-450); Eosinophils Percent Auto 1.7 % (2-4); Hematocrit 29.3 % (36-46); Hemoglobin 10.1 g/dL (12.0-16.0); Lymphocytes Absolute Auto 1600 /uL (1100-4500); Lymphocytes Percent Auto 23.6 % (25-40); Mean Corpuscular HGB Conc 34.4 % (30-36); Mean Corpuscular Hemoglobin 30.6 PG (26-34); Mean Corpuscular Volume 88.9 fL (80-100); Monocytes Absolute Auto 1600 /uL (0-900); Neutrophils Absolute Auto 3500 /uL (1500-7000); Platelet Count 473 X10^3/uL (150-400); Red Cell Distribution Width 14.4 % (11.6-14.8); White Blood Cell Count 6.9 X10^3/uL (4.5-11.0)
[2021-11-05 05:40] LABS: NT-proBNP (BNP-Adult 18+) 891 pg/mL (<450)
[2021-11-05 07:55] LABS: BUN Creatinine Ratio 12.2 (6-22); Blood Urea Nitrogen 19 mg/dL (7-17); Calcium 8.3 mg/dL (8.4-10.2); Carbon Dioxide 26 mmol/L (22-32); Chloride 94 mmol/L (98-107); Estimated Glomerular Filt Rate 34 mL/min (>60); Glucose 96 mg/dL (80-110); HEMOLYSIS < 15 (0-50); Sodium 124 mmol/L (137-145)
[2021-11-05 08:00] VITALS: BP 148/69; PULSE 63; RESP 17; TEMP 36.2; O2SAT 95
--- NOTE | 2021-11-05 08:07 | PM.DS.1 ---
History of Present Illness History of Present Illness Chief complaint: sob Discharge Providers Provider Date of admission: 11/02/21 16:12 Discharge Date: 11/05/21 Primary care physician: Zheng Beth MD Consults: 11/02/21 18:21 Consult to Respiratory Therapy Evaluate & Treat Comment: IS training as well Physician Instructions: Evaluate and treat 11/04/21 08:27 Consult to Dietitian, Adult Routine Comment: Reason For Exam: peripheral edema; breast cancer; decreased albumin Discharge provider: Roosevelt Maravilla MD Summary Hospital Course Discharge Diagnosis: Hyponatremia Breast cancer Hypertension Hyperlipidemia Depression Chronic kidney disease Hospital Course: Patient was admitted to the hospital with swelling and hyponatremia. During her hospital stay patient had laboratory testing echocardiogram diuresis and fluid restriction. Patient's previous sodium was 125-130. Which she came in her sodium level was 111. Due to physician treatment her sodium level improved to 124. At the time of discharge patient was ambulating walking well tolerating her diet and vital signs were stable. Patient will be discharged home to follow-up with her primary care physician in 1 week. Exam Vital Signs (past 8 hours): - 11/05/21 04:00 11/05/21 08:00 Temperature 99.2 F 97.2 F L Pulse Rate 63 63 Respiratory Rate 19 17 Blood Pressure 139/69 148/69 H Pulse Oximetry 94 95 Oxygen Flow Rate 0 Oxygen Delivery Method Room Air Oxygen Flow Rate 0 Objective Labs Result Diagrams: 11/05/21 04:46 11/05/21 07:47 Labs: Laboratory Results - last 24 hr 11/04/21 11/04/21 11/05/21 07:45 07:45 04:46 WBC 6.1 RBC 3.33 L Hgb 10.3 L Hct 29.8 L MCV 89.4 MCH 30.8 MCHC 34.5 RDW 14.2 Plt Count 478 H Neut % (Auto) 54.2 Lymph % (Auto) 21.2 L Republic % (Auto) 22.6 H Eos % (Auto) 1.2 L Baso % (Auto) 0.8 Neut # (Auto) 3300 Lymph # (Auto) 1300 [place] # (Auto) 1400 H Eos # (Auto) 100 Baso # (Auto) 0 Sodium 121 L Potassium 3.5 Chloride 92 L Carbon Dioxide 24 BUN 20 H Creatinine 1.65 H Estimated GFR 32 L BUN/Creatinine Ratio 12.1 Glucose 99 Calcium 8.3 L Total Bilirubin 0.3 AST 41 H ALT 25 Alkaline Phosphatase 60 NT-Pro-B Natriuret Pep 891 H Total Protein 6.3 Albumin 3.4 L Globulin 2.9 Albumin/Globulin Ratio 1.2 11/05/21 11/05/21 04:46 07:47 WBC 6.9 RBC 3.30 L Hgb 10.1 L Hct 29.3 L MCV 88.9 MCH 30.6 MCHC 34.4 RDW 14.4 Plt Count 473 H Neut % (Auto) 51.0 Lymph % (Auto) 23.6 L [place] % (Auto) 23.0 H Eos % (Auto) 1.7 L Baso % (Auto) 0.7 Neut # (Auto) 3500 Lymph # (Auto) 1600 [place] # (Auto) 1600 H Eos # (Auto) 100 Baso # (Auto) 0 Sodium 124 L Potassium 4.0 Chloride 94 L Carbon Dioxide 26 BUN 19 H Creatinine 1.56 H Estimated GFR 34 L BUN/Creatinine Ratio 12.2 Glucose 96 Calcium 8.3 L Total Bilirubin AST ALT Alkaline Phosphatase NT-Pro-B Natriuret Pep Total Protein Albumin Globulin Albumin/Globulin Ratio PFSH Medical History CRF (chronic renal failure) Diabetes High cholesterol HTN (hypertension) Surgical History H/O lumpectomy H/O: hysterectomy Family History Sister Gallstones Father Colon cancer Social History household members: family and none lives independently: Yes occupational status: previously employed Smoking Status: Former smoker alcohol intake: current substance use type: other Discharge Plan Discharge Plan Patient Disposition: Home Discharge orders & Medications Prescriptions: New furosemide 40 mg Tablet 40 mg PO DAILY Qty: 30 0RF Continued loperamide 2 MG capsule 2 mg PO PRN PRN (Reason: Diarrhea) Qty: 0 lisinopril-hydrochlorothiazide 20-12.5 mg tablet 1 tab PO DAILY metoprolol tartrate 100 mg tablet 100 mg PO BID simvastatin 40 mg tablet 40 mg DAILY magnesium, potassium aspartate 250-250 mg Capsule 1 cap PO BID omega-3 fatty acids 500 mg Capsule 500 mg PO BID cholecalciferol (vitamin D3) [Vitamin D3] 25 mcg (1,000 unit) Tablet,Chewable 25 mcg PO BID anastrozole 1 mg Tablet 1 mg PO DAILY Qty: 90 3RF amlodipine 10 mg tablet See Rx Instructions .ROUTE .COMPLEX Rx Instructions: htn acetaminophen [Tylenol] 325 mg capsule 650 mg PO QID PRN (Reason: pain) Qty: 60 0RF cetirizine [Zyrtec] 5 mg Tablet 5 mg PO DAILY Follow up/Referrals: Zheng Beth MD [Primary Care Provider] - Discharge Data Primary Care Provider: Zheng Beth
[2021-11-05] MEDS: ANASTROZOLE 1 MG TABLET PO (08:11)
[2021-11-05] MEDS: METOPROLOL IR 50 MG TABLET 100 MG PO (08:11)
[2021-11-05] MEDS: LORATADINE 10 MG TABLET PO (08:12)
[2021-11-05] MEDS: FUROSEMIDE 40 MG TABLET PO (08:12)
== END 2021-11-05 10:50 | disposition home or self-care (01) | DRG 640 ==
LOC: ED 15:46 → AC 16:16 → ICU 17:25
PROVIDERS: Family Medicine; Admitting Provider Family Medicine; Emergency Provider Emergency Medicine; PCP Family Medicine; Referring Provider Emergency Medicine; Visit Provider Family Medicine
DX: E87.1 Hypo-osmolality and hyponatremia (principal); I50.31 Acute diastolic (congestive) heart failure; I13.0 Hypertensive heart and chronic kidney disease with heart failure and stage 1 through stage 4 chronic kidney disease, or unspecified chronic kidney disease; N18.9 Chronic kidney disease, unspecified; F32.A Depression, unspecified; J30.9 Allergic rhinitis, unspecified; E78.5 Hyperlipidemia, unspecified; C50.911 Malignant neoplasm of unspecified site of right female breast; Z17.0 Estrogen receptor positive status [ER+]; Z87.891 Personal history of nicotine dependence; Z20.822 Contact with and (suspected) exposure to COVID-19
CPT/HCPCS: 36415; 70450; 71046; 71275; 72100; 80048; 80051; 80053; 81001; 81003; 82550; 82553; 83605; 83880; 84295; 84300; 84443; 84484; 85025; 85610; 87086; 87635; 87797; 93005; 93306; 96374; 99238; 99284; 99291; 99292; C9803; J1650; J1940

== ENCOUNTER → 2022-07-26 12:56 | Outpatient (CLI) | payer OTHER, SELFPAY ==
[2021-11-02 16:18] VITALS: BMI 37.9
--- NOTE | 2022-07-26 13:06 | DIET.OUTPTC ---
Dietary Outpatient Consultation Note Consultation Date: 07/26/[address] visit for help with renal diet. Pt diagnosed T2DM 30y ago, diagnosed with CKD4 recently. Pt yet to see air defense specialist, is nervous she will have to stop eating foods she enjoys and help her with BG control. Managing T2DM with high fiber diet- beans, avocado, portion control. No longer on metformin and considered to be in remission. Food Recall: B: coffee with cinnamon Sunmade cinnamon raisin toast L: sandwich or leftovers Sn: cheese and crackers etoh: vodka with twist of lemon, 3 olive martini D: burritos, Cambodian and Tajik food, half eating out half eating in currently limiting fluids to 48oz/d Physical Activity: slow walk daily, going to physical therapy for knee Nutrition Diagnosis: altered nutrition related laboratory (renal) r/t renal dysfunction and nutrition related aeb pt GFR 32, Cr 1.5, pt with 30y hx T2DM and HTN. Interventions: 1. Educated pt on Renal Diet using Kidney Plate. a) limit animal protein to 2oz per serving, limit beans to 1/2 cup per serving, preferentially choose plant proteins. b) limit dietary sodium to 600mg/meal. Practiced label reading for sodium. c) limit phos additives in processed foods. Practiced label reading for phos d) preferentially choose whole grains over refined grains. e) freely eat low potassium fruits and vegetables, start noticing high potassium fruits and vegetables-avoid stacking high K+ choices. f) discussed phosphorus in wg/nuts/beans vs dairy vs processed foods. Safe intake. 2. Problem solved meals of concern for pt. f/u prn pt has 3 visits yearly- prefer visit after most recent labs. Electronically Signed by: Emma Thomas 07/26/22 13:06 Clinical Dietitian [address] [id number]
== END ==
PROVIDERS: Absent Provider Family Medicine; Family Provider Family Medicine; PCP Family Medicine; Referring Provider Family Medicine; Visit Provider Family Medicine
DX: N18.4 Chronic kidney disease, stage 4 (severe) (principal); E11.22 Type 2 diabetes mellitus with diabetic chronic kidney disease; Z71.3 Dietary counseling and surveillance
CPT/HCPCS: 97802

== ENCOUNTER → 2023-11-19 14:19 | Outpatient (CLI) | payer OTHER, SELFPAY ==
[2021-11-02 16:18] VITALS: BMI 37.9
--- NOTE | 2023-11-19 14:20 | DI.MG.S_ITS ---
UNILATERAL LEFT DIGITAL SCREENING MAMMOGRAM 3D/2D WITH CAD: 11/19/2023 CLINICAL: Routine screening. Breast cancer. Comparison is made to exams dated: 07/08/2021 mammogram, 05/27/2021 mammogram, 04/20/2021 mammogram, and 10/26/2015 mammogram - [facility]. There are scattered areas of fibroglandular density in the left breast (category b / 25%-50% glandular tissue). Current study was also evaluated with a Computer Aided Detection (CAD) system. There are benign calcifications in the left breast. There also are benign post operative findings in the left breast. No significant masses, calcifications, or other findings are seen in the breast. There has been no significant interval change. IMPRESSION: BENIGN There is no mammographic evidence of malignancy. A 1 year screening mammogram is recommended. This exam was interpreted at Station ID: [id number]. NOTE: For mammograms, a report in lay terms will be sent to the patient. Approximately 15% of breast malignancies will not be visualized mammographically. In the management of a palpable breast mass, a negative mammogram must not discourage biopsy of a clinically suspicious lesion. Electronically Signed By: Parish wu/tarun:11/19/2023 18:26:56 letter sent: Normal Exam ACR BI-RADS Category 2: Benign Finding(s) [id number]
== END ==
LOC: MAMMO 14:20
PROVIDERS: Family Provider Family Medicine; PCP Family Medicine; Referring Provider Family Medicine; Visit Provider Family Medicine
DX: Z12.31 Encounter for screening mammogram for malignant neoplasm of breast (principal); Z85.3 Personal history of malignant neoplasm of breast; R92.322 Mammographic fibroglandular density, left breast
CPT/HCPCS: 77063; 77067